=== PATIENT | male | born 1945 | race Caucasian/White ===

== ENCOUNTER 2020-04-15 12:28 | Outpatient (CLI) | payer MEDICARE, SELFPAY ==
--- NOTE | ~2020-04-15 | US_ITS ---
EXAMINATION: US renal BI DATE: 04/15/2020 13:11 INDICATION: Abnormal renal function tests TECHNIQUE: Multiple grayscale and Doppler ultrasound images of the kidneys were obtained. COMPARISON: None. FINDINGS: The right kidney measures 12.3 x 6.3 x 6.9 cm. The left kidney measures 11.2 x 6.2 x 4.7 cm . Cysts of the left kidney measure up to 3 cm. The kidneys demonstrate normal parenchymal echogenicit y. There is no hydronephrosis. The bladder is normal. IMPRESSION: 1. Unremarkable kidneys without hydronephrosis. Reviewed, dictated and finalized at location A. F PHARMACIST
--- NOTE | ~2020-04-15 | US_ITS ---
EXAMINATION: US thyroid EXAM DATE: 04/15/2020 13:11 INDICATION: Z80.8 - Family history of malignant neoplasm of thyroid. TECHNIQUE: Multiple grayscale and Doppler images of the thyroid were obtained (by a technologist who performed the scan) and subsequently reviewed. Individual nodules and recommendations may be reporte d in accordance with TI-RADS system as designated by the 2017 ACR White Paper TI-RADS committee. The re is no prior study for comparison. FINDINGS: The right thyroid lobe measures 4.9 x 2.4 x 2.1 cm, the left measures 5.2 x 2.0 x 2.1 cm. There is mi ldly diffusely heterogeneous thyroid echogenicity. There are 2 left thyroid lobe nodules identified, most concerning in the midpole measuring 2.1 x 1.5 x 1.6 cm, solid (2 points), hypoechoic (2 points), wider than tall, lobulated margin (2 points), with out echogenic foci, category TR4 for this nodule. The other nodule measures up to 1.4 cm. IMPRESSION: Recommend ultrasound-guided biopsy of the largest left thyroid lobe nodule. Reviewed, dictated and finalized at location B. ANT PRINTER OPERATOR
== END 2020-04-15 12:29 | disposition home or self-care (01) ==
LOC: ANHIMG 12:35
PROVIDERS: PCP Internal Medicine; Visit Provider Internal Medicine
DX: R79.89 Other specified abnormal findings of blood chemistry (principal); Z80.8 Family history of malignant neoplasm of other organs or systems
CPT/HCPCS: 76536; 76775

== ENCOUNTER 2020-05-23 01:11 | Outpatient (CLI) | payer MEDICARE, SELFPAY ==
[2020-05-23 18:46] LABS: SARS-CoV-2 RNA PCR Negative
== END 2020-05-23 01:12 | disposition home or self-care (01) ==
LOC: ANHCOVIDDT 01:11
PROVIDERS: Family Provider Internal Medicine; PCP Internal Medicine; Visit Provider Internal Medicine Gastroenterology
DX: Z01.812 Encounter for preprocedural laboratory examination (principal); Z20.822 Contact with and (suspected) exposure to COVID-19
CPT/HCPCS: C9803; U0003; U0005

== ENCOUNTER 2020-05-26 01:45 | Day surgery (SDC) | payer MEDICARE, SELFPAY ==
[2020-05-20 09:47] VITALS: BMI 32.2
[2020-05-26 06:41] VITALS: BP 148/69; PULSE 59; RESP 18; TEMP 36.3; O2SAT 98; BMI 31.2
[2020-05-26] MEDS: LACTATED RINGERS 1,000 ML 150 ML IV CONT (06:54)
[2020-05-26 06:55] LABS: Glucose Point of Care 85 (65-105)
[2020-05-26] MEDS: GENTAMICIN 80MG/SOD CHL 50 ML 80 MG/50 ML BAG 100 MG IVPB (06:55)
[2020-05-26] MEDS: AMPICILLIN 2 GM/NS 100 ML 2 GM/100 ML BAG IVPB (07:19)
--- NOTE | 2020-05-26 07:28 | WPDANESEPPF ---
Anes - Initial Pre Proc Eval Procedure: Operation Date: 05/26/20 08:00 Proposed Procedures p Esophagogastroduodenoscopy & Colonoscopy - Serafin Gonzalez MD Date/Time: 05/26/20 07:28 Surgeon: Serafin Gonzalez MD Pre Op Diagnosis: Anemia Patient Data Age: 75 Gender: M Height: 6 ft 2 in Weight: 110.5 kg Last Vital Signs Temp 97.3 F L 05/26/20 06:41 Pulse 59 L 05/26/20 06:41 Resp 18 05/26/20 06:41 BP 148/69 H 05/26/20 06:41 Pulse Ox 98 05/26/20 06:41 Allergies Allergy/AdvReac Type Severity Reaction Status Date / Time No Known Allergies Allergy Unknown Verified 05/20/20 09:47 Home Medications Medication Instructions Recorded Confirmed Type aspirin 81 mg tablet,delayed 81 mg PO DAILY 04/30/19 05/20/20 History release calcium polycarbophil 625 mg tablet 1,250 mg PO BID 04/30/19 05/20/20 History cholecalciferol (vitamin D3) 1,250 50,000 unit PO WEEKLY #10 cap 04/30/19 05/20/20 Rx mcg (50,000 unit) capsule omega-3 fatty acids 1,000 mg 2,000 mg PO BID cap 05/24/19 05/20/20 History capsule atorvastatin 20 mg tablet 20 mg PO DAILY #90 tablet 09/18/19 05/20/20 Rx carvedilol 3.125 mg tablet 12.5 mg PO BID tablet 09/30/19 05/20/20 History apixaban 5 mg tablet 5 mg PO BID #180 tablet 12/02/19 05/20/20 Rx cyanocobalamin (vitamin B-12) 1,000 mcg IM MONTHLY #1 ml 12/23/19 05/20/20 Rx 1,000 mcg/mL injection solution valsartan 80 mg tablet 160 mg PO DAILY #180 tablet 03/05/20 05/26/20 Rx tamsulosin 0.4 mg capsule 0.4 mg PO DAILY #90 cap 03/16/20 05/20/20 Rx amiodarone 200 mg tablet 200 mg PO DAILY 05/08/20 05/20/20 History metformin 1,000 mg PO BID 05/20/20 05/20/20 History sodium,potassium,mag sulfates See Rx Instructions .ROUTE 05/20/20 Rx [Suprep Bowel Prep Kit] .COMPLEX #1 ml Laboratory Tests 05/26/20 06:52 POC Capillary Glucose 85 mg/dl mg/dl (65-105) Patient hx anesthesia problems: none Family hx anesthesia problems: none [facility] Past Medical History Medical History (Updated 05/08/20 @ 08:56 by Maura Campbell SHINGLER) A-fib Abnormal finding of blood chemistry, unspecified Anemia Benign essential hypertension BMI 31.0-31.9,adult BMI 32.0-32.9,adult BPH (benign prostatic hyperplasia) Bronchitis Cardiac pacemaker in situ CHF (congestive heart failure) Cough DM type 2 (diabetes mellitus, type 2) DREW (dyspnea on exertion) Early satiety Elevated glucose Elevated serum creatinine Encounter for Medicare annual wellness exam Encounter for Medicare annual wellness exam Encounter for routine adult health examination without abnormal findings Encounter for special screening examination for neoplasm of prostate Family history of thyroid cancer Fatigue Follow up Hearing loss Hyperlipidemia Nocturia Non-ischemic cardiomyopathy 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 Orthostatic hypotension AMOR on CPAP Renal insufficiency Rhinorrhea Swelling of right hand Thyroid nodule URI (upper respiratory infection) Vitamin B12 deficiency Vitamin D deficiency Surgical History Surgical History H/O aortic valve replacement Family History Family History Father Family history of diabetes mellitus in first degree relative Family history of coronary artery disease Patient's father is Diabetes mellitus Hypertension Thyroid cancer Sibling Family history of diabetes mellitus in first degree relative Diabetes mellitus Thyroid cancer Other Family history of congestive heart failure Social History Social History Smoking status: Never smoker Second hand tobacco smoke exposure: No Alcohol intake: never Substance use: never Substance use type: does not use Living arrangements: with family Spiritual care concerns: No Anes - Eval Final PreProcedure Day of Procedure 05/26/20 07:28 Patie
--- NOTE | 2020-05-26 08:12 | WPDGICN ---
Assessment and Plan Assessment and plan (1) Anemia: Qualifiers: Anemia type: unspecified type Qualified Code(s): D64.9 - Anemia, unspecified Code(s): D64.9 - Anemia, unspecified Status: Acute Assessment and Plan: Patient with anemia reports occasional rectal bleeding. He is on anticoagulation because of atrial fibrillation. For all these reasons GI endoscopy will be anticipated today to evaluate for safety of continuing blood thinners. Colonoscopy an EGD reports follow separately. (2) A-fib: Qualifiers: Atrial fibrillation type: unspecified persistent Qualified Code(s): I48.19 - Other persistent atrial fibrillation Code(s): I48.91 - Unspecified atrial fibrillation Status: Acute (3) Rectal bleeding: Code(s): K62.5 - Hemorrhage of anus and rectum Status: Acute Assessment and Plan: Rectal bleeding identified will be evaluated at time of endoscopy. Metamucil is suggested daily. Patient is known to have hemorrhoids from previous exam. GI Consult Note Consult date/time: 05/26/20 08:12 HPI: Ryan Almanza is a 75 year old male Presents for evaluation of anemia. Patient recently found to have anemia on routine lab work. Patient reports intermittent bright red blood per rectum particularly lasting 1 week. This occurred 2 weeks ago and has subsequently resolved. Patient states that he typically will strain at stools. He presents today for GI endoscopy to evaluate anemia more thoroughly. Previous colonoscopy by Dr. Joshua Levy in 2018 revealed only internal hemorrhoids. Past medical history is significant for previous aortic valve replacement and pacemaker. He typically is on Eliquis. Patient's family history is noncontributory. He reports no known family history of colon or rectal disease. Review of Systems Review of Systems: All systems reviewed & are unremarkable except as noted in HPI and below [facility] Past Medical History Medical History (Updated 05/26/20 @ 08:16 by Serafin Gonzalez MD) A-fib Abnormal finding of blood chemistry, unspecified Anemia Benign essential hypertension BMI 31.0-31.9,adult BMI 32.0-32.9,adult BPH (benign prostatic hyperplasia) Bronchitis Cardiac pacemaker in situ CHF (congestive heart failure) Cough DM type 2 (diabetes mellitus, type 2) DREW (dyspnea on exertion) Early satiety Elevated glucose Elevated serum creatinine Encounter for Medicare annual wellness exam Encounter for Medicare annual wellness exam Encounter for routine adult health examination without abnormal findings Encounter for special screening examination for neoplasm of prostate Family history of thyroid cancer Fatigue Follow up Hearing loss Hyperlipidemia Nocturia Non-ischemic cardiomyopathy 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 Orthostatic hypotension AMOR on CPAP Renal insufficiency Rhinorrhea Swelling of right hand Thyroid nodule URI (upper respiratory infection) Vitamin B12 deficiency Vitamin D deficiency Surgical History Surgical History H/O aortic valve replacement Family History Family History Father Family history of diabetes mellitus in first degree relative Family history of coronary artery disease Patient's father is Diabetes mellitus Hypertension Thyroid cancer Sibling Family history of diabetes mellitus in first degree relative Diabetes mellitus Thyroid cancer Other Family history of congestive heart failure Social History Social History Smoking status: Never smoker Second hand tobacco smoke exposure: No Alcohol intake: never Substance use: never Substance use type: does not use Living arrangements: with family Spiritual care concerns: No Meds Home Medications and Allergies Home Medications Medication Instru
[2020-05-26 08:54] VITALS: BP 108/69; PULSE 60; RESP 25; O2SAT 97
[2020-05-26 09:04] VITALS: BP 109/71; PULSE 60; RESP 17; O2SAT 97
[2020-05-26 09:14] VITALS: BP 130/72; PULSE 56; RESP 18; O2SAT 96
== END 2020-05-26 09:24 | disposition home or self-care (01) ==
PROVIDERS: Family Provider Internal Medicine; PCP Internal Medicine; Visit Provider Internal Medicine Gastroenterology
PROC: 0DJ08ZZ Inspection of Upper Intestinal Tract, Via Natural or Artificial Opening Endoscopic (ICD-10-PCS; CPT 43235; principal; 2020-05-26 08:00)
DX: D64.9 Anemia, unspecified (principal); K62.5 Hemorrhage of anus and rectum; K64.8 Other hemorrhoids; K22.2 Esophageal obstruction; I48.91 Unspecified atrial fibrillation; I11.0 Hypertensive heart disease with heart failure; I50.9 Heart failure, unspecified; I42.8 Other cardiomyopathies; N40.0 Benign prostatic hyperplasia without lower urinary tract symptoms; E11.9 Type 2 diabetes mellitus without complications; E78.5 Hyperlipidemia, unspecified; G47.33 Obstructive sleep apnea (adult) (pediatric); E55.9 Vitamin D deficiency, unspecified; E53.8 Deficiency of other specified B group vitamins; Z95.0 Presence of cardiac pacemaker; Z95.4 Presence of other heart-valve replacement; Z79.82 Long term (current) use of aspirin; Z79.01 Long term (current) use of anticoagulants; Z79.84 Long term (current) use of oral hypoglycemic drugs; E66.9 Obesity, unspecified; Z68.31 Body mass index [BMI] 31.0-31.9, adult
CPT/HCPCS: 43450; 43235; 45378; 82948; J0290; J1580; J2704; J7120

== ENCOUNTER 2020-05-29 12:54 | Outpatient (CLI) | payer MEDICARE, SELFPAY ==
--- NOTE | ~2020-05-29 | US_ITS ---
EXAMINATION: US FNA w image guidance DATE: 05/29/2020 13:53 INDICATION: Nontoxic single thyroid nodule. TECHNIQUE: The procedure and its benefits, risks, and benefits were discussed with the patient. Risks specifical ly discussed included bleeding. The patient verbalized understanding of the risks and agreed to proce ed. The neck was prepped and draped in the usual sterile manner. 1% lidocaine was used for local ane sthesia. 5 passes were made with a 25G needle into the lesion. Appropriate needle location was docu mented with continuous sonographic guidance. There were no immediate complications. The patient unde rstood to call the ordering physician for results after a week and a half and verbalized that underst anding. FINDINGS: Grayscale ultrasound images demonstrate needles advanced into a 1.7 cm nodule in left thyroid lobe fo r biopsy. IMPRESSION: 1. Ultrasound-guided fine needle aspiration of a left thyroid nodule. Reviewed, dictated and finalized at location A. MILL TECHNICIAN
== END 2020-05-29 12:55 | disposition home or self-care (01) ==
PROVIDERS: PCP Internal Medicine; Visit Provider Otolaryngology
DX: E04.1 Nontoxic single thyroid nodule (principal)
CPT/HCPCS: 10005; 88173; 88305

== ENCOUNTER → 2020-09-04 01:31 | Outpatient (CLI) | payer MEDICARE, SELFPAY ==
[2020-09-04 19:36] LABS: SARS-CoV-2 RNA PCR Negative
== END ==
PROVIDERS: PCP Internal Medicine; Visit Provider Internal Medicine Critical Care Medicine
DX: R68.89 Other general symptoms and signs (principal); Z20.822 Contact with and (suspected) exposure to COVID-19
CPT/HCPCS: C9803; U0003; U0005

== ENCOUNTER 2020-09-07 07:45 | Outpatient (CLI) | payer MEDICARE, SELFPAY ==
--- NOTE | 2020-09-23 14:25 | WPDSLEEPSTUD ---
Sleep Study Date of Study: 09/07/20 Ordering Provider: Artur Henrandez MD Interpreting Physician: Mercedes Hernandez MD Sleep Study Type: CPAP Titration Height: 1.88 m Weight: 113.398 kg Body Mass Index: 32.1 Neck Circumference (inches): 18 [place]: 6 Reason for Sleep Study History of sleep apnea with similar weight 247 lb in 2012 and 2013 Basic sleep study, AHI 58.7, lowest sat 83%, obstructive, mixed and central apneas 07/03/2013 CPAP; inadequate CPAP titration, complex sleep apnea, recommended repeat titration 07/30/2013 BiPAP titration, ASV with final pressure EPAP 8 cm, min PS 3 cm, max PS 15 cm Sleep History Ryan Almanza is a 75-year-old man who was diagnosed with complex sleep apnea in 2012, and was titrated on ASV July 2013. See above results. There is no new sleep questionnaire completed. His office visit on August 26, 2020 shows that he currently uses CPAP and is complaint with it. I see no compliance data in the system. He has non-nonischemic cardiomyopathy, atrial fibrillation and orthostatic hypotension. The last sleep study in our system was 2013 when he was titrated on ASV. He has systolic heart failure and a history of aortic valve replacement 07/04/2007 with a bioprosthetic valve. He developed worsening LV function and decreased EF, and on 01/21/2019 had a Bi V ICD placed. The most recent echo results were from 09/02/2020 echo at [facility] with severely enlarged left atrium, ejection fraction 39% with left ventricular hypertrophy. With an EF below 45%, he is not a candidate for ASV any longer. [facility] Past Medical History Medical History (Updated 09/23/20 @ 16:02 by Mercedes Hernandez MD) A-fib Abnormal finding of blood chemistry, unspecified Anemia Benign essential hypertension BMI 31.0-31.9,adult BMI 32.0-32.9,adult BMI 33.0-33.9,adult BPH (benign prostatic hyperplasia) Bronchitis Cardiac pacemaker in situ CHF (congestive heart failure) Cough DJD (degenerative joint disease), multiple sites DM type 2 (diabetes mellitus, type 2) DREW (dyspnea on exertion) Early satiety Edema Elevated glucose Elevated serum creatinine Encounter for Medicare annual wellness exam Encounter for Medicare annual wellness exam Encounter for routine adult health examination without abnormal findings Encounter for special screening examination for neoplasm of prostate Family history of thyroid cancer Fatigue Follow up Hearing loss Hyperlipidemia Nocturia Non-ischemic cardiomyopathy 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 Orthostatic hypotension AMOR on CPAP Renal insufficiency Rhinorrhea SOB (shortness of breath) Swelling of right hand Systolic heart failure Thyroid nodule URI (upper respiratory infection) Vitamin B12 deficiency Vitamin D deficiency Surgical History Surgical History H/O aortic valve replacement Family History Family History Father Thyroid cancer Diabetes mellitus Family history of diabetes mellitus in first degree relative Patient's father is Family history of coronary artery disease Hypertension Family history of congestive heart failure Sibling Thyroid cancer Diabetes mellitus Family history of diabetes mellitus in first degree relative Social History Social History Smoking status: Never smoker Second hand tobacco smoke exposure: No Alcohol intake: never Substance use: never Substance use type: does not use Spiritual care concerns: No Medications Home Medications Medication Instructions Recorded Confirmed Type aspirin 81 mg tablet,delayed 81 mg PO DAILY 04/30/19 09/08/20 History release calcium polycarbophil 625 mg tablet 1,250 mg PO BID 04/30/19 09/08/20 History omega-3 fatty acids 1,000 mg 2,000 mg PO BID cap 05/24/19 09/08/20 History capsule tamsulosin 0.4 mg capsule 0.4 mg PO DONNA
[2020-09-23 15:37] VITALS: BMI 32.1
== END 2020-09-07 07:46 | disposition home or self-care (01) ==
LOC: ANHCSM 07:49
PROVIDERS: PCP Internal Medicine; Visit Provider Internal Medicine
DX: G47.33 Obstructive sleep apnea (adult) (pediatric) (principal); G25.81 Restless legs syndrome; Z99.89 Dependence on other enabling machines and devices
CPT/HCPCS: 95811

== ENCOUNTER 2020-11-09 07:15 | Outpatient (RCR) | payer MEDICARE, SELFPAY ==
[2020-08-18 08:48] VITALS: BP 138/70; PULSE 79; RESP 16; TEMP 36.6; O2SAT 97
[2020-08-18 09:23] VITALS: PULSE 80
== END 2020-11-09 15:30 | disposition home or self-care (01) ==
LOC: ANHCPREHAB 07:15
PROVIDERS: PCP Internal Medicine; Visit Provider Internal Medicine Cardiovascular Disease
DX: Z95.2 Presence of prosthetic heart valve (principal)
CPT/HCPCS: 93798

== ENCOUNTER 2020-12-03 11:39 | Outpatient (CLI) | payer MEDICARE, SELFPAY ==
--- NOTE | ~2020-12-03 | XR_ITS ---
EXAMINATION: XR chest 2V DATE: 12/03/2020 11:57 INDICATION: Cough. TECHNIQUE: Frontal and lateral views of the chest were obtained. COMPARISON: Chest 2 views 12/22/2017, PET/CT 11/22/2018 FINDINGS: There is no pneumonia, pleural effusion, or pneumothorax. Cardiomegaly is noted. There are changes of heart valve replacement. There is a left chest pacer with leads in right atrium, right sky tricle, and coronary sinus. IMPRESSION: 1. Cardiomegaly. Reviewed, dictated and finalized at location A. IMPRESSION: 1. Cardiomegaly.
== END 2020-12-03 11:40 | disposition home or self-care (01) ==
PROVIDERS: PCP Internal Medicine; Visit Provider Internal Medicine
DX: R05 Cough (principal); I51.7 Cardiomegaly
CPT/HCPCS: 71046

== ENCOUNTER 2020-12-17 14:55 | Outpatient (CLI) | payer MEDICARE, SELFPAY ==
--- NOTE | ~2020-12-17 | XR_ITS ---
XR knee RT min 4V DATE: 12/17/2020 15:49 INDICATION: Right knee pain for 2 days. No known injury. TECHNIQUE: [place], standing AP, PA and lateral views COMPARISON: None FINDINGS: There is mild suprapatellar knee joint effusion. No fracture or dislocation, radiopaque intra-articular loose body or chondrocalcinosis is evident. Th ere is mild to moderate loss of height at the medial compartment. No periosteal reaction or bone dest ruction. IMPRESSION: Mild knee joint effusion Mild osteoarthritis Reviewed, dictated and finalized at location A.
[2020-12-17 16:44] LABS: Erythrocyte Sedimentation Rate 14 mm/hr (0-20)
[2020-12-17 17:12] LABS: CRP 1.9 mg/dL (<1.0); Uric Acid 7.3 mg/dL (3.5-8.5)
== END 2020-12-17 14:56 | disposition home or self-care (01) ==
PROVIDERS: PCP Internal Medicine; Visit Provider Internal Medicine
DX: M25.461 Effusion, right knee (principal); M17.11 Unilateral primary osteoarthritis, right knee
CPT/HCPCS: 36415; 73564; 84550; 85652; 86140

== ENCOUNTER 2021-09-28 07:58 | Outpatient (RCR) | payer MEDICARE, SELFPAY ==
[2021-09-28 08:06] VITALS: BMI 32.7
[2021-09-28 08:12] VITALS: BMI 32.7
== END 2021-10-15 11:56 | disposition home or self-care (01) ==
LOC: ANHDMC 07:58
PROVIDERS: PCP Internal Medicine; Visit Provider Internal Medicine
DX: E11.65 Type 2 diabetes mellitus with hyperglycemia (principal); Z71.3 Dietary counseling and surveillance
CPT/HCPCS: 97802

== ENCOUNTER 2023-04-26 10:01 | Outpatient (CLI) | payer MEDICARE, SELFPAY ==
--- NOTE | ~2023-04-26 | XR_ITS ---
Clinical Indication: Chest pain PA and lateral views of the chest: Comparison: 12/11/2020 Findings: The lungs are clear, without evidence of focal consolidation or pleural effusion. Stable pr esumed bilateral nipple shadows. Cardiomediastinal silhouette is stable, status post aortic valve rep lacement, with pacemaker device. Bones and soft tissues are unremarkable. Impression: No acute abnormality. Pacemaker device. Reviewed, dictated and finalized at location M. ETING COMMUNICATIONS ASSISTANT Impression: No acute abnormality. Pacemaker device.
== END 2023-04-26 10:02 | disposition home or self-care (01) ==
PROVIDERS: PCP Internal Medicine; Visit Provider Internal Medicine
DX: R07.9 Chest pain, unspecified (principal); Z95.0 Presence of cardiac pacemaker
CPT/HCPCS: 71046

== ENCOUNTER 2023-05-11 08:35 | Outpatient (CLI) | payer MEDICARE, SELFPAY ==
--- NOTE | ~2023-05-11 | XR_ITS ---
EXAMINATION: XR UGIAC w small bowel DATE: 05/11/2023 13:55 INDICATION: Unspecified abdominal pain. Irregular bowel movements. TECHNIQUE: The patient drank thick barium, gas-producing crystals, and thin barium. Conventional supi ne abdomen radiographs and fluoroscopic spot radiographs of the esophagus, stomach, and proximal smal l bowel were obtained. Additional overhead radiographs were obtained during the transit through the s mall bowel. Spot fluoroscopic images of the small bowel were obtained upon contrast reaching the cec um. Fluoroscopy exposure time was 3.9 minutes. Total DAP was 341.837 Gycm^2. A total of 806 fluorosco pic images and 12 overhead radiographs were recorded. COMPARISON: CT abdomen and pelvis dated 05/01/2013 and PET/CT dated 11/22/2018 FINDINGS: The cricopharyngeus muscle appears mildly prominent. The esophagus is otherwise normal without mass o r stricture. Esophageal motility is normal. Small sliding-type hiatal hernia with gastroesophageal ju nction approximately 5 cm above the level of the diaphragm. There was no gastroesophageal reflux with provocative maneuvers. There is approximately 3 cm duodenal diverticulum extending medially from the second portion of the duodenum. The stomach and proximal small bowel are otherwise normal. Transit time from the stomach to proximal colon was approximately 2 hours and 30 minutes. There is no rmal caliber and mucosal fold pattern throughout the small bowel. Terminal ileum is normal. No teth ering or abnormal mass effect observed upon the small bowel with real-time fluoroscopy. Median sternotomy wires and mediastinal surgical clips are seen, likely from prior coronary artery by pass grafting. Dual lead pacemaker/AICD seen with leads projecting over the expected locations of the right atrium and right ventricular outflow tract. Cholecystectomy clips in the right upper quadrant. Couple additional surgical clips in the left abdomen and pelvis. IMPRESSION: 1. Small sliding-type hiatal hernia without evident reflux with provocative maneuvers. 2. Normal small bowel follow-through. Reviewed, dictated and finalized at location A. ING AND BONING SUPERVISOR IMPRESSION: 1. Small sliding-type hiatal hernia without evident reflux with provocative man euvers. 2. Normal small bowel follow-through.
--- NOTE | ~2023-05-11 | US_ITS ---
EXAMINATION: US abdomen complete DATE: 05/11/2023 09:31 INDICATION: Unspecified abdominal pain. TECHNIQUE: Multiple grayscale and Doppler ultrasound images of the abdomen were obtained. COMPARISON: PET/CT 11/22/2018 FINDINGS: Inferior vena cava is normal. Abdominal aorta is normal in caliber. The visualized portions of the head and body of the pancreas are normal. The liver is normal without focal lesion. There is normal flow in main portal vein. The gallbladder is absent. The common duct is normal and measures 4 mm. The spleen is normal size. The kidneys are normal in size. There is a 3.5 cm cyst in left kidney. IMPRESSION: 1. No etiology for abdominal pain. Reviewed, dictated and finalized at location E. COUNTER AND WRAPPER
== END 2023-05-11 08:36 | disposition home or self-care (01) ==
LOC: ANHIMG 08:40
PROVIDERS: PCP Internal Medicine; Visit Provider Internal Medicine
DX: R10.9 Unspecified abdominal pain (principal); K44.9 Diaphragmatic hernia without obstruction or gangrene
CPT/HCPCS: 74246; 74248; 76700

== ENCOUNTER 2023-07-20 09:18 | Outpatient (CLI) | payer MEDICARE, SELFPAY | END 2023-07-20 09:19 | disposition home or self-care (01) | LOC: ANHLAB 09:21 | PROVIDERS: PCP Internal Medicine; Visit Provider Internal Medicine | DX: R19.7 Diarrhea, unspecified (principal) | CPT/HCPCS: 87045; 87177; 87209; 87427; 87449; 89055 ==

== ENCOUNTER 2023-11-09 07:52 | Outpatient (CLI) | payer MEDICARE, SELFPAY | END 2023-11-09 07:53 | disposition home or self-care (01) | LOC: ANHAUDASC 07:53 | PROVIDERS: PCP Internal Medicine; Visit Provider Internal Medicine | DX: H90.3 Sensorineural hearing loss, bilateral (principal) | CPT/HCPCS: 92557; 92567 ==

== ENCOUNTER 2024-06-17 12:44 | Outpatient (CLI) | payer MEDICARE, SELFPAY ==
--- NOTE | ~2024-06-17 | US_ITS ---
EXAM: ABDOMEN ULTRASOUND HISTORY: R14.0 - Abdominal distension (gaseous) COMPARISON: 05/11/2023 FINDINGS: LIVER: The liver is unremarkable in echogenicity and size measuring 16cm in longitudinal dimension. The portal vein is patent demonstrating hepatopedal flow. GALLBLADDER: Surgically absent. BILE DUCTS: Common bile duct measures 4mm. PANCREAS: Limited evaluation of the pancreas secondary to overlying bowel gas SPLEEN: The spleen is unremarkable in echogenicity and increased in size measuring 15 cm in longitudi nal dimension (increased from previous examination). RIGHT KIDNEY: 11.8 cm. In length. No hydronephrosis or bulky renal calculi. LEFT KIDNEY: 11.4cm in length. No hydronephrosis or renal calculi. Within the upper pole of the left kidney is a well-circumscribed anechoic structure measuring 4.5 x 1 .5 x 4.7 cm, consistent with a simple cyst for which no further follow-up is needed. VASCULATURE : The abdominal aorta is nonaneurysmal. The IVC is patent. IMPRESSION: Evaluation of the pancreas is limited by overlying bowel gas. Splenomegaly. Simple cyst within the upper pole of the left kidney. Reviewed, dictated and finalized at location A. ITUTIONAL AIDE
--- NOTE | ~2024-06-17 | XR_ITS ---
EXAMINATION: XR UGI w small bowel DATE: 06/17/2024 16:34 INDICATION: Abdominal distention. TECHNIQUE: The patient drank thick barium, gas-producing crystals, and thin barium. Fluoroscopy of th e esophagus, stomach, and small bowel was performed. Fluoroscopy exposure time was 1.2 minutes. Radio graphs of the abdomen were obtained. The total number of images was 481. COMPARISON: PET/CT 11/22/2018 FINDINGS: UPPER GASTROINTESTINAL SERIES: There is no mass or stricture of the esophagus. Esophageal motility is normal. There is no hiatal her aniyah. There was no gastroesophageal reflux with provocative maneuvers. The stomach shows a normal fold ing pattern. Median sternotomy wires and pacer wires are noted. SMALL BOWEL SERIES: The small bowel shows a normal folding pattern. Specifically, the terminal ileum is normal. Transit t danny to the colon was 1 hour 45 minutes. IMPRESSION: 1. Normal upper gastrointestinal series. 2. Normal small bowel series. Reviewed, dictated and finalized at location A. DESIGNER
--- OUTSIDE RECORDS SUMMARY | 2024-06-17 14:29 | XMS_ITS | Referral Summary ---
Author Organization [facility] D Address [address] [place] [address] Care Team Providers Care Nurse Technician Name Role Phone Artur Hernandez MD Primary Care Provider [phone] Giuliana Gómez MD Unavailable [phone] Kenny Chavez MD Unavailable [phone] Encounters Date Type Department Care Team Description 03/25/2024 8:00 AM CLINICAL PRODUCT MANAGER Ancillary Procedure [facility] [address] [place] [id number] ICD (implantable cardioverter-defibr illator), biventricular, in situ (Primary Dx); NICM (nonischemic cardiomyopathy) (CMS/HCC) (FORMERLY [facility]) 03/19/2024 Documentation [facility] [address] [place] [phone] Kirstie Doherty NP from Last 3 Months Allergies Active Allergy Reactions Criticality Noted Date Comments Spironolactone Other (See comments) Low 07/11/2020 did not have allergic reaction but threw lab work off. pt cant tolerate it. Medications polycarbophil (FIBERCON) 625 mg tablet Take 1 tablet (625 mg total) by mouth 2 (two) times a day Active aspirin 81 mg enteric coated tablet Take 1 tablet (81 mg total) by mouth nightly Active atorvastatin (LIPITOR) 20 mg tablet Take 1 tablet (20 mg total) by mouth nightly Active apixaban (ELIQUIS) 5 mg tablet Take 1 tablet (5 mg total) by mouth 2 (two) times a day Active metFORMIN (FORTAMET) 1,000 mg 24 hr tablet Take 1 tablet (1,000 mg total) by mouth 2 (two) times a day with meals Active cyanocobalamin, vitamin B-12, 1,000 mcg/mL kit Inject as directed every 30 (thirty) days Active tamsulosin (FLOMAX) 0.4 mg extended release capsule Take 1 capsule (0.4 mg total) by mouth every evening 0 Active folic acid 0.8 mg capsule daily 1 Active cholecalciferol (VITAMIN D-3) 1,000 unit capsule Take 1 capsule (1,000 Units total) by mouth daily Active potassium chloride ER (KLOR-CON) 10 mEq CR tablet Take 1 tablet/capsul e (10 mEq total) by mouth Twice weekly 1 Active empagliflozin (JARDIANCE) 25 mg tabletIndications: heart failure with reduced ejection fraction,type 2 diabetes mellitus Take 1 tablet (25 mg total) by mouth daily Active furosemide (LASIX) 20 mg tablet Take 1 tablet (20 mg total) by mouth 2 (two) times a week 2 Active carvediloL (COREG) 25 mg tabletIndications: Automatic implantable cardiac defibrillator in situ,Chronic systolic congestive heart failure (CMS/HCC) (HCC) Take 1 tablet (25 mg total) by mouth 2 (two) times a day 60 tablet 11 4 09/19/19 25 Active melatonin 5 mg tablet Take 1 tablet (5 mg total) by mouth daily Active carvediloL (COREG) 3.125 mg tablet Take 1 tablet (3.125mg) by mouth with 25 mg tablet twice daily (total 28.125mg) 180 tablet 3 4 Active sacubitriL-valsart an (ENTRESTO) 49-51 mg tabletIndications: chronic heart failure Take 1 tablet by mouth 2 (two) times a day 60 tablet 11 4 02/14/20 25 Active Active Problems Problem Noted Date Diagnosed Date S/P ablation of atrial fibrillation 12/22/2023 Anticoagulation management encounter 06/21/2023 Assessment & Plan (06/21/2023 2:56 PM CLINICAL PRODUCT MANAGER): -remains compliant on Eliquis -denies any issues with bruising or bleeding -recommend continued therapy for thromboprophylaxis Aftercare following surgery 08/11/2020 Aortic valve disease 08/06/2020 Assessment & Plan (03/11/2021 11:09 AM CLINICAL PRODUCT MANAGER): Bioprosthetic aortic valve is functioning normally. Assessment & Plan (11/05/2020 10:21 AM CDT): He is status post two aortic valve replacements, 2007 and 2020. There is no AI murmur heard today. He feels that he is not recuperating as well since his 2nd operation as he did with his 1st, which is not very surprising to me as he is 13 years older now and has had significant heart issues between the two operations including a left bundle branch block related cardiomyopathy and atrial fibrillation. Assessment & Plan (08/06/2020 8:10 AM CDT): Remote aortic valve replacement which recently failed, followed by redo AVR on 07/06/2020 from which s cardiac rehab he is recuperating well. I do recommend cardiac rehab. Nonrheumatic aortic valve insufficiency 07/03/19 Overview (07/02/2020): Added automatically from request for surgery [id number] Aortic valve insufficiency 06/09/2020 Chronic systolic congestive heart failure (CMS/H CC) 07/04/2019 Assessment & Plan (02/07/2024 11:27 AM CDT): Chronic, stable. S/p RAILROAD CAR REPAIRMAN-D system implantation. Excellent device function by interrogation today. BiV pacing percentage 87% without a clear explanation. Reported PVC% is 1%. No PVCs in office today. --Continue remote device monitoring Assessment & Plan (03/11/2021 11:09 AM CLINICAL PRODUCT MANAGER): Congestive heart failure appears to be well compensated at this time. Recent proBNP was only mildly elevated, and lungs are clear to exam. Oxygen saturation is 96%. Weight is down 4 lb in the last month. Assessment & Plan (11/05/2020 10:22 AM CDT): Congestive heart failure is compensated by exam. He does have mild ankle edema but is lungs sound clear and he does not describe orthopnea or PND. He is on a very low-dose of furosemide which appears to be effective. Assessment & Plan (11/25/2019 10:10 AM CDT): No evidence of congestive heart failure at this time. He is on no diuretic therapy. ICD (implantable cardioverte r-defibrillator), biventricular, in situ 01/21/2019 Overview (01/21/2019): [employer] Quadra Assura BI-V ICD implanted on 01/21/19 for NICM/CHF/LBBB. Loyd Whittington Assessment & Plan (03/10/2024 8:28 PM CLINICAL PRODUCT MANAGER): Followed by the Device Clinic. Assessment & Plan (06/21/2023 3:01 PM CLINICAL PRODUCT MANAGER): -status post bi V ICD placement (2018) -Device interrogation performed today showed 77% RA pacing and 85% RV and LV pacing. -Two years to RISHABH. -Atrial arrhythmia burden is less than 1%. -Had an episode of atrial fibrillation that lasted 5 days and 14 minutes. Rates in the 90s. Patient denies feeling his atrial fibrillation. -The patient's device was interrogated today and found to be functioning appropriately. No significant programming changes were made at this time. The patient will continue to be followed through the [facility] device clinic remotely and with in office device interrogations as needed. Assessment & Plan (06/01/2020 10:41 AM CLINICAL PRODUCT MANAGER): Followed by Dr. Harp, with normal function when last assessed. Assessment & Plan (05/03/2019 5:32 PM CLINICAL PRODUCT MANAGER): Paced QRS complex is wide. This may not result in improvement in his cardiomyopathy. Will communicate with Dr. Harp. Assessment & Plan (04/02/2019 10:40 AM CLINICAL PRODUCT MANAGER): To be interrogated today. Dilated cardiomyopathy (CMS/HCC) 12/19/2018 Assessment & Plan (03/10/2024 8:22 PM CLINICAL PRODUCT MANAGER): Mr. Almanza endorses NYHA Class II heart failure symptoms. He is euvolemic on exam and tolerating GDMT including Entresto, Jardiancem, and Carvedilol. I have made no changes to his regimen today and have asked him to follow up in 3 months. Assessment & Plan (09/27/2023 1:14 PM CDT): S/p RAILROAD CAR REPAIRMAN-D system implantation. Inadequate RAILROAD CAR REPAIRMAN delivery due to rapid AF. --AF ablation as above --Repeat TTE to reassess LV function Assessment & Plan (03/11/2021 11:11 AM CLINICAL PRODUCT MANAGER): Echo shows marked worsening compared with that done six months ago, despite compliance with medications and CPAP, and despite normal function of his bioprosthetic aortic valve. QRS complex was quite wide on his echo rhythm strip. I discussed this with Kirstie Doherty NP and the device nurse. He has an appointment today in the arrhythmia Center. They will try to change the timing on his biventricular device to shorten QRS, thereby providing more effective biventricular pacing. Will confer with Dr. Chavez, and defer to him regarding management, although my expectation would be that he will continue to up titrate carvedilol (has been on current dose for only 1 week), likely switch from losartan to Entresto, and likely add Farxiga. Will plan to repeat echo in conjunction with an office visit in three months. Assessment & Plan (11/05/2020 10:20 AM CDT): Ejection fraction deteriorated with his prosthetic valve aortic insufficiency. Most recent echo showed an EF of 39% in August 2020. Repeat echo in February. Assessment & Plan (08/06/2020 8:12 AM CDT): Cardiomyopathy had resolved, then recurred in the setting of his aortic insufficiency. Will increase carvedilol from 3.125 mg b.i.d. to 6.25 mg b.i.d. I fully expect his ejection fraction to normalize again. Echo Doppler in one month. Assessment & Plan (06/01/2020 10:39 AM CLINICAL PRODUCT MANAGER): Ejection fraction has normalized with medications, maintenance of sinus rhythm, and biventricular pacing. Assessment & Plan (11/25/2019 10:08 AM CDT): This appears to have resolved. Heart size was normal on his echo from 08/23/2019. Assessment & Plan (08/23/2019 11:43 AM CDT): Today's echocardiogram shows that his left ventricle is normal in size and contractility. I believe this is attributable to biventricular pacing (although EF was still quite low six weeks after initiation of Bi V pacing) and to resolution of atrial fibrillation. I would recommend continuation of his current regimen, though perhaps with mild adjustment over time as outlined below. Assessment & Plan (06/21/2019 10:31 AM CLINICAL PRODUCT MANAGER): He is minimally symptomatic, which has been confounding to him. Will increase carvedilol to 25 mg b.i.d.. If his blood pressure remains high on this dosage, valsartan should be increased to 320 mg daily. Will plan to obtain an echocardiogram in two months, after he has been on maximal carvedilol dosage and is hopefully back in sinus rhythm. In the meantime, he has an appointment scheduled with Dr. Chavez. Assessment & Plan (05/24/2019 10:13 AM CLINICAL PRODUCT MANAGER): Tolerating carvedilol. Increased dosage to 12.5 mg b.i.d. and return in three weeks for an increase to 25 mg b.i.d.. Will plan to reassess EF once he has been on this dosage for 2-3 months. He remains minimally symptomatic. Assessment & Plan (05/03/2019 5:27 PM CLINICAL PRODUCT MANAGER): Reviewed again that it is great that he feels so good, but nevertheless he does have a serious heart problem. Increase carvedilol to 6.25 mg b.i.d. and see me in two weeks for up titration to 12.5 mg b.i.d.. I'm reluctant to transition him to Entresto with his blood pressure running somewhat high despite 60 mg of lisinopril, but may consider this if his blood pressure improves with up titration of carvedilol. Will need to make sure that he can afford this, and he would need to come off lisinopril for 36 hours prior to initiating it. Strictly speaking, since he does not have chronic heart failure NYHA class 2-4, he may not meet criteria for Entresto. He was advised to limit alcohol consumption to no more than one alcoholic beverage in a 24 hour period (again, this is very frustrating to him since he is feeling fine and has a hard time believing there is anything wrong). Assessment & Plan (04/02/2019 10:40 AM CLINICAL PRODUCT MANAGER): Still with severe dilated cardiomyopathy, ejection fraction perhaps slightly improved compared with his most recent DANNY. Now that he is being paced, will add carvedilol 3.125 mg b.i.d. and see him back in a month for gradual up titration. 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 Assessment & Plan (01/04/2019 3:40 PM CDT): Cause of his dilated cardiomyopathy is still uncertain. I suspect it may be related to his left bundle branch block, but it is also possible that it has developed in the setting atrial fibrillation. He tolerates it remarkably well. Assessment & Plan (12/19/2018 4:33 PM CDT): Ejection fraction has dropped since March of 2018 from 59% to 36% by echo, coincident with enlargement of the left ventricle from 5.3 cm to 6.4 cm. In the same interval, he has developed atrial fibrillation. He has a left bundle branch block pattern which in retrospect may have been present since 2013, and which may contribute to left ventricular dysfunction, although left ventricular function was normal in March 2018. He has recently developed exertional dyspnea, but by exam does not seem to be in congestive heart failure. I have recommended a DANNY guided cardioversion in the hopes of restoring sinus rhythm, in the hopes that this will improve his ejection fraction. If his ejection fraction does not improve significantly with christian of sinus rhythm, would consider cardiac resynchronization therapy. LBBB (left bundle branch block) 12/19/2018 Assessment & Plan (08/06/2020 8:14 AM CDT): Status post Bi V ICD. Assessment & Plan (11/25/2019 10:09 AM CDT): This likely contributed to his cardiomyopathy and he is now biventricular paced. Assessment & Plan (06/21/2019 10:35 AM CLINICAL PRODUCT MANAGER): Received Bi V ICD on 01/11/2019. Echocardiogram three months later showed an EF of 31%, on improved. Assessment & Plan (05/03/2019 5:32 PM CLINICAL PRODUCT MANAGER): This may have contributed to his cardiomyopathy. Unfortunately, he is maintaining a wide complex paced rhythm despite biventricular pacing. Assessment & Plan (04/02/2019 10:39 AM CLINICAL PRODUCT MANAGER): Status post biventricular device. Assessment & Plan (01/04/2019 3:42 PM CDT): This was present on his Holter monitor in May 2017. It may be the cause or or a contributor to his cardiomyopathy. His EF was 59% on 03/27/2018. Assessment & Plan (12/19/2018 4:28 PM CDT): On review of EKG tracings done with echocardiograms, this appears to have developed sometime between 2011 and 2013. It may be contributing to his LV dysfunction. However, LV dysfunction was not demonstrated on an echocardiogram in March 2018. Paroxysmal atrial fibrillation (CMS/HCC) 019 Assessment & Plan (03/10/2024 8:28 PM CLINICAL PRODUCT MANAGER): Remains on Eliquis. Beta radha dose increased by EP for increased AF burden. Assessment & Plan (02/07/2024 11:27 AM CDT): Chronic, stable. Doing well post-AF ablation without recurrence. --Continue apixaban 5 mg BID --Continue carvedilol 25 mg BID Assessment & Plan (09/27/2023 1:13 PM CDT): Probably symptomatic, with fatigue/ effort intolerance. Occurring in context of NICM and LBBB s/p RAILROAD CAR REPAIRMAN-D system implantation. AF now interfering with adequate delivery of RAILROAD CAR REPAIRMAN despite maximum dose BB therapy. Significant risk of LV function deterioration and worsening HF syndrome I counseled the patient regarding management options for symptomatic atrial fibrillation. These include further rate control/expectant therapy, antiarrhythmic drug therapy +/- electrical cardioversion or catheter ablation. We also discussed AV node ablation as a definitive rate control strategy. After review of the relative merits of each approach, together we agreed that ablation was the next best step. I reviewed the procedural steps, risks/benefits, recovery and expected outcomes for AF ablation. He is at elevated risk for procedural complications due to his advanced age, cardiomyopathy and presence of RAILROAD CAR REPAIRMAN system. I reviewed the concept that patients with more persistent AF are at higher risk for recurrence, and that a second procedure is often necessary to achieve an optimal outcome. I emphasized the importance of uninterrupted anticoagulation for at least 3 months following ablation, regardless of baseline thromboembolic risk. After answering all questions, the patient elected to proceed with ablation. --Atrial fibrillation ablation w/anesthesia --DANNY on table prior to procedure --[employer] device eligibility services representative to be available for programming periprocedurally --Continue apixaban 5 mg BID. Hold starting the evening prior to procedure. --Continue carvedilol 25 mg BID Pt will follow-up 1 month post-ablation in the AF clinic with a nurse practitioner. Follow-up with me 3 months post-ablation. Assessment & Plan (06/21/2023 3:42 PM CLINICAL PRODUCT MANAGER): -atrial fibrillation noted upon device interrogation today, with the longest episode lasting 5 days and 14 minutes, patient denies any symptoms with that arrhythmia (burden less than 1%) -remains compliant on Coreg and Eliquis -patient had not increase his Coreg to 12.5 mg b.i.d., he will do so today -EKG today demonstrates biventricular pacing (60) -follow-up in 6 months for a 12 lead EKG in clinic visits -remote transmission in 4 weeks to re-evaluate Assessment & Plan (03/11/2021 11:11 AM CLINICAL PRODUCT MANAGER): By device interrogation he is maintaining sinus rhythm on low-dose amiodarone. He is also on Eliquis 5 mg b.i.d.. Assessment & Plan (11/05/2020 10:22 AM CDT): Follows with EP. He remains on amiodarone and Eliquis. Assessment & Plan (08/06/2020 8:12 AM CDT): In sinus rhythm on amiodarone. He follows with Dr. Harp for his heart rhythm. Assessment & Plan (06/01/2020 10:41 AM CLINICAL PRODUCT MANAGER): Most recent device interrogation showed no atrial fibrillation on amiodarone. Will defer to Dr. Harp regarding duration of amiodarone therapy. Assessment & Plan (11/25/2019 10:09 AM CDT): Maintaining sinus rhythm on amiodarone. He is anticoagulated. Assessment & Plan (08/23/2019 11:44 AM CDT): Status post cardioversion on 07/01/2019. He remains on amiodarone 400 mg daily. He will follow-up with Dr. Harp. Continue anticoagulation. Assessment & Plan (06/21/2019 10:35 AM CLINICAL PRODUCT MANAGER): Device remote through 05/21/2019 showed that he was still in atrial fibrillation. He is scheduled for cardioversion with Dr. Harp in early June. Will message device staff to check and make sure that he is still in atrial fibrillation. Assessment & Plan (05/24/2019 10:14 AM CLINICAL PRODUCT MANAGER): On amiodarone. Seeing EP. Cardioversion planned for June. Assessment & Plan (05/03/2019 5:32 PM CLINICAL PRODUCT MANAGER): Anticoagulated. Plan for cardioversion in two months. Assessment & Plan (04/02/2019 10:39 AM CLINICAL PRODUCT MANAGER): He is on amiodarone and Eliquis. He has a device check today and appointment with Dr. Hrap. Assessment & Plan (01/04/2019 3:39 PM CDT): Atrial fibrillation has recurred since cardioversion. This early recurrence leads me to believe he needs anti rhythmic therapy, which is not safe given his significant sinus node dysfunction. Continue Eliquis. Will refer to Dr. Harp for consideration at least biventricular pacing, and perhaps biventricular ICD. Once his heart rate can be controlled, anti rhythmic therapy can be initiated. Continue Eliquis. Assessment & Plan (12/19/2018 4:34 PM CDT): Newly discovered. Although he had not had a recent EKG, I did look at the EKG tracing with his echo of 03/27/2018, and he was definitely in sinus rhythm then. He does not experience palpitations, and the chronicity of his atrial fibrillation is unknown except that it has developed sometime since March 2018. His normal heart rate in atrial fibrillation is consistent with his history of sinus node dysfunction. Since his atrial fibrillation is associated with a decline in ejection fraction, I have recommended early cardioversion which requires DANNY guidance. He is to continue Eliquis. I explained to him and his that with christian of sinus rhythm it is possible that his heart rate will be slow, and a pacemaker could be necessary. I did discuss his case informally with Dr. Harp, who agrees with cardioversion at this point given his LV dysfunction. H/O aortic valve replacement with tissue graft 1 05/29/2016 Assessment & Plan (03/10/2024 8:29 PM CLINICAL PRODUCT MANAGER): Normal function on echo earlier this year. Assessment & Plan (06/01/2020 10:43 AM CLINICAL PRODUCT MANAGER): He has an aortic insufficiency murmur today which I have not previously heard. It was not described in my note from November [address] Chavez's note from January 2020. Will obtain echo Doppler. If his valve is deteriorating this may explain why he is more short of breath now than he was a year ago. Assessment & Plan (11/25/2019 10:09 AM CDT): Aortic valve is functioning normally. Assessment & Plan (08/23/2019 11:46 AM CDT): Normal function. Assessment & Plan (06/21/2019 10:36 AM CLINICAL PRODUCT MANAGER): Bioprosthetic aortic valve is functioning normally. Assessment & Plan (05/03/2019 5:29 PM CLINICAL PRODUCT MANAGER): Functioning normally. Assessment & Plan (04/02/2019 10:39 AM CLINICAL PRODUCT MANAGER): Aortic valve is functioning normally. Assessment & Plan (01/04/2019 3:42 PM CDT): Aortic valve is functioning normally. Assessment & Plan (12/19/2018 4:29 PM CDT): Aortic valve is functioning normally. Assessment & Plan (03/27/2018 11:11 AM CLINICAL PRODUCT MANAGER): Mild transvalvular gradient, without significant change since 2016. We discussed the potential for valve in valve TAVR when/if this valve fails. Assessment & Plan (03/28/2017 11:23 AM CLINICAL PRODUCT MANAGER): No symptoms of aortic stenosis, and valve was functioning well on last year's echo. His exam today does not suggest that this is changed significantly. Will obtain an echo in one year, two years from his last one. H/O aortic root repair 03/28/2017 Assessment & Plan (03/28/2017 11:22 AM CLINICAL PRODUCT MANAGER): He has not had a recent chest CT. Will order. His last one was done without contrast which made measurements difficult. Essential hypertension 03/28/2017 Assessment & Plan (03/11/2021 11:11 AM CLINICAL PRODUCT MANAGER): Blood pressure is controlled on current regimen. Assessment & Plan (11/05/2020 10:23 AM CDT): Blood pressure is adequately controlled on current regimen. No change was made. Assessment & Plan (08/06/2020 8:12 AM CDT): Blood pressure is adequately controlled on current regimen. No change was made. Assessment & Plan (06/01/2020 10:40 AM CLINICAL PRODUCT MANAGER): Blood pressure is adequately controlled on current regimen. No change was made. Assessment & Plan (11/25/2019 10:10 AM CDT): Initial blood pressure in the office was normal. On repeat, a little high. He sees Dr. Hernandez frequently, so will defer to him to adjust medication if necessary. If his blood pressure does run consistently high, I would recommend increasing carvedilol back to 25 mg b.i.d.. Assessment & Plan (08/23/2019 11:45 AM CDT): Blood pressure became low after spironolactone. Diovan has been reduced. Today's blood pressure is normal. He will follow up closely with his primary care physician regarding his blood pressure and renal function. Over time, it might make sense to eliminate hydrochlorothiazide and increase Diovan. Assessment & Plan (06/21/2019 10:32 AM CLINICAL PRODUCT MANAGER): Blood pressure is too high. If it does not normalize with increased carvedilol, valsartan should be increased. Assessment & Plan (05/24/2019 10:13 AM CLINICAL PRODUCT MANAGER): Blood pressure is not controlled. Hopefully increasing carvedilol will help. I am reluctant to switch to Entresto prior to his blood pressure being controlled as that would necessitate him being off lisinopril for a day. Will continue to keep this in mind as an option once his blood pressure is better. Assessment & Plan (05/03/2019 5:29 PM CLINICAL PRODUCT MANAGER): Blood pressure is too high, but was 118/70 on 04/30/2019 when he saw his PCP. Will increase carvedilol. Assessment & Plan (04/02/2019 10:39 AM CLINICAL PRODUCT MANAGER): Diastolic blood pressure is a bit high, and hopefully will improve with carvedilol. Assessment & Plan (01/04/2019 3:44 PM CDT): Blood pressure is adequately controlled on current regimen. No change was made. Assessment & Plan (12/19/2018 4:31 PM CDT): Blood pressure is adequately controlled on current regimen. No change was made. Assessment & Plan (03/27/2018 11:11 AM CLINICAL PRODUCT MANAGER): Blood pressure is adequately controlled on current regimen. No change was made. Assessment & Plan (03/28/2017 11:22 AM CLINICAL PRODUCT MANAGER): Blood pressure is adequately controlled on current regimen. No change was made. Hyperlipidemia 03/28/2017 Assessment & Plan (11/05/2020 10:23 AM CDT): On chronic lipid lowering therapy with good control. No changes made. Assessment & Plan (11/25/2019 10:11 AM CDT): On chronic lipid lowering therapy with good control. No changes made. Assessment & Plan (05/03/2019 5:32 PM CLINICAL PRODUCT MANAGER): On chronic lipid lowering therapy with good control. No changes made. Assessment & Plan (04/02/2019 10:39 AM CLINICAL PRODUCT MANAGER): On chronic lipid lowering therapy with good control. No changes made. Assessment & Plan (01/04/2019 3:42 PM CDT): On chronic lipid lowering therapy with good control. No changes made. Assessment & Plan (12/19/2018 4:32 PM CDT): On chronic lipid lowering therapy with good control. No changes made. Assessment & Plan (03/27/2018 11:12 AM CLINICAL PRODUCT MANAGER): On chronic lipid lowering therapy with good control. No changes made. Assessment & Plan (03/28/2017 11:22 AM CLINICAL PRODUCT MANAGER): On chronic lipid lowering therapy with good control. No changes made. Sick sinus syndrome (CMS/HCC) 03/28/2017 Assessment & Plan (03/27/2018 11:11 AM CLINICAL PRODUCT MANAGER): Mild and asymptomatic Assessment & Plan (03/28/2017 11:22 AM CLINICAL PRODUCT MANAGER): Asymptomatic. Continue to monitor. Social History Tobacco Use Types Packs/Day Years Used Date Smoking Tobacco: Never Smokeless Tobacco: Never Tobacco Cessation:Counseling Given: Not Answered Alcohol Use Standard Drinks/Week Comments Yes 0 (1 standard drink = 0.6 oz pur e alcohol) rare beer AUDIT-C Answer Date Recorded Q1: How often do you have a drink containing alc ohol? Monthly or less 10/31/2023 Q2: How many drinks containi ng alcohol do you have on a typical day when you are drinking? 1 or 2 10/31/2023 Q3: How often do you have si x or more drinks on one occasion? Never 10/31/2023 Personal Safety Answer Date Recorded Have you ever been in or are you currently in a harmful physical or emotional relationship or is someone making you feel afraid or unsafe? Denies 10/31/2023 Sex and Gender Information Value Date Recorded Sex Assigned at Not on file Legal Sex Male 7:32 PM CLINICAL PRODUCT MANAGER Gender Identity Not on file Sexual Orientation Not on file Last Filed Vital Signs Vital Sign Reading Time Taken Comments Blood Pressure 119/81 03/05/2024 11:13 AM CLINICAL PRODUCT MANAGER Pulse 60 03/05/2024 11:13 AM CLINICAL PRODUCT MANAGER Temperature 36.4 C (97.6 F) 10/31/2023 1:55 PM CDT Respiratory Rate 16 03/05/2024 11:1 3 AM CLINICAL PRODUCT MANAGER Oxygen Saturation 92% 03/05/2024 11: 13 AM CLINICAL PRODUCT MANAGER Inhaled Oxygen Concentration - - Weight 115.3 kg (254 lb 1.6 oz) 11/12/2 024 11:13 AM CLINICAL PRODUCT MANAGER Height 188 cm (6' 2 ) 03/05/2024 11:13 AM CLINICAL PRODUCT MANAGER Body Mass Index 32.62 03/05/2024 11:13 AM CLINICAL PRODUCT MANAGER Plan of Treatment Not on file Medical Devices Implanted Type Area Marshmallow Machine Operator Device Identifier Shelf Expiration Date Model / Serial / Lot [employer] Vascade Mvp 6-12fr Venous Closure [id number] - [id number] - [id number] Implanted:Qty: 1 on 10/31/2023 by Todd Cochran III, MD at [facility] Collagen [employer] 03/24/2025 800-612C -[id number] / [id number] / [id number] [employer] Vascade Mvp 6-12fr Venous Closure [id number] - [id number] - [id number] Implanted:Qty: 1 on 10/31/2023 by Todd Cochran III, MD at [facility] Collagen [employer] 07/12/2025 800-612C -10U / [id number] / [id number] [employer] Vascade Mvp 6-12fr Venous Closure [id number] - [id number] - [id number] Implanted:Qty: 1 on 10/31/2023 by Todd Cochran III, MD at [facility] Collagen [employer] 07/12/2025 800-612C -10U / [id number] / [id number] [employer] [id number] Quadra Assura Mp 78g88ml Df-4 Is4 Is-1 Connector [id number] - [id number] - [id number] Implanted:Qty: 1 on 01/21/2019 by Joe Harp MD at [facility] ICD Left: Chest [employer] [id number] 12/22/2020 [id number] 0Q / [id number] / [employer] 7121q/65 Durata Sj4 7fr 65cm 2 Coil True Bipolar Cardioverter - [id number] - [id number] Implanted:Qty: 1 on 01/21/2019 by Joe Harp MD at [facility] Lead Left: Chest [employer] [id number] 07/22/2020 7121Q/65 / [id number] / [employer] 2088tc/52 Tendril Sts 6fr 52cm Is-1 Connector Active Fixation Bipolar Soft - [id number] - [id number] Implanted:Qty: 1 on 01/21/2019 by Joe Harp MD at [facility] Lead Left: Chest [employer] [id number] 12/22/2021 2088TC/5 2 / [id number] / [employer] 1456q/86 Quartet 4.7fr 86cm Quadripolar Is-4 Llll Connector 8 Curve Low - [id number] - [id number] Implanted:Qty: 1 on 01/21/2019 by Joe Harp MD at [facility] Lead Left: Chest [employer] [id number] 11/21/2021 1456Q/86 / [id number] / [employer] [id number] Vascade 6/7fr Bioabsorbable Vascular System Compression Collagen - S0 - [id number] Implanted:Qty: 1 on 07/02/2020 by Amari Burgess MD at [facility] Other - see comments [employer] 02/09/2022 [id number] -[id number] / 0 / [id number] Description:Right Femoral ve inous closure device [employer] [id number] Brien-Ashley andre Perimount Magna Ease 27mm Bioprosthesis - [id number] - [id number] Implanted:Qty: 1 on 07/06/2020 by Darvin Hernandez MD at [facility] Prosthetic Valve N/A: Aortic Valve [employer] 01/30/2023 [id number] 7MM / [id number] / [id number] Procedures Procedure Name Priority Date/Time Associated Diagnosis Comments DEVICE CHECK - REMOTE Routine 03/25/2024 11:19 AM CLINICAL PRODUCT MANAGER NICM (nonischemic cardiomyopathy) (CMS/HCC) (HCC) from Last 3 Months Results * DEVICE CHECK - REMOTE (03/25/2024 11:19 AM CLINICAL PRODUCT MANAGER) Anatomical Region Laterality Modality Other Narrative 03/27/2024 11:27 AM CLINICAL PRODUCT MANAGER Table formatting from the original result was not included. BiV ICD CHECK (REMOTE) Patient ID: Eulalio Almanza is a 79 y.o. male. This patient received a Robles BiV ICD. They had a routine remote transmission on 03/25/2024 Device implant indications: Nonischemic cardiomyopathy, CHF, LBBB Interrogation of the patient's device demonstrates the following: Presenting EGM: A paced Bi V paced @ 60 bpm Original Device Settings Right Atrium Right Ventricle Left Ventricle Sensitivity (mV) Auto mV Auto mV N/a mV Pacing Outputs 2.0 V @ 0.5 ms 2.0 V @ 0.5 ms 2.375 V @ 0.5 ms Testing Measurements Right Atrium Right Ventricle Left Ventricle Sensitivity (mV) 2.2 mV 11.1 mV Not done mV Impedence (Ohms) 410 ohms 400 ohms 650 ohms Pace Threshold Not done V @ ms 0.625 V @ 0.5 ms 1.375 V @ 0.5 ms Pacing % 83 % 96 % 96 % HV Lead Impedance N/A 40 ohms N/A Battery Status: 1.5 years to RISHABH, charge time 8.9 seconds. Episodes last 90 days/Comments: AF Fleming <1 %, numerous episodes classified as AT/AF with the longest duration 1 minute and 16 seconds on 03/22. Ventricular rates ranged from the 90s to low 100s. No new ventricular events. NORMAL DEVICE FUNCTION PROGRAMMED MEDICATIONS: Anti-coagulant(s): Aspirin 81 mg, Eliquis 5 mg twice a day Anti-arrhythmic(s): Coreg 3.125 mg twice a day PLAN: 1) normal Robles BiV ICD evaluation 2) Robles remote transmission scheduled in 3 months. 3) Programming appropriate for device settings Demi Delanty, RN us Todd Cochran III, MD [facility] PROCEDURES Final Result from Last 3 Months Insurance MEDICARE [facility] MEDICARE [employer] MEDICARE SUPPLEMENT [facility] MEDICARE [facility] MEDICARE SUPPLEMENT Advance Directives For more information, please contact: [phone] * Full Code (Latest Code Status on File) Date Activated Date Inactivated Comments 07/06/2020 1:57 PM 07/10/2020 3:07 PM * Full Code Date Activated Date Inactivated Comments 07/01/2019 9:07 AM 07/02/2019 4:46 AM * Full Code Date Activated Date Inactivated Comments 03/11/2019 8:57 AM 2019 4:48 AM Care Teams Nurse Technician Relationship Specialty Start Date End Date Artur Hernandez MD [address] [facility] [address] [employer]NAL MEDICINE [place], [place] [id number] PCP - General 10/30/12 Giuliana Gómez MD [address] [place] [address] Consulting Physician Cardiology 07/08/20 Kenny Chavez MD [address] [facility] [address] [place] [address] Transplant 03/24/24
--- OUTSIDE RECORDS SUMMARY | 2024-06-17 14:29 | XMS_ITS | Clinical Summary ---
Author Organization [facility] Address [address] [place] [address] Phone Care Team Providers Care Buggy Driver Name Role Phone Unavailable Primary Care Provider Unavailabl e Social History Tobacco Use Types Packs/Day Years Used Date Smoking Tobacco: Never Assessed Sex and Gender Information Value Date Recorded Sex Assigned at Not on file Legal Sex Male 11:38 PM CDT Gender Identity Not on file Sexual Orientation Not on file Plan of Treatment Health Maintenance Due Date Last Done Comments Hepatitis C Virus (HCV) Screening 1945 TdaP Immunization 1945 Pneumococcal Immunization (5 0+ years) (1 of 1 - PCV) 1997 Zoster Immunization (1 of 2) 1997 Respiratory Syncytial Virus (RSV) Immunization (Adult) (1 - 1-dose 75+ series) 2022 Influenza Immunization (#1) 2023 SARS-COV-2 Immunization ( season) 2023 Colonoscopy High Risk Discontinued 08/15/2012 Colonoscopy Discontinued 08/15/2012 Colorectal Cancer Screening Discontinued Cologuard Discontinued Hepatitis B Immunization Aged Out No longer eligible based on patient's age to complete this topic Immunochemical Fecal Occult Blood Discontinued Meningococcal Immunization (ACWY) Aged Out No longer eligible based on patient's age to complete this topic Rotavirus Immunization Aged Out No lo nger eligible based on patient's age to complete this topic Procedures Procedure Name Priority Date/Time Associated Diagnosis Comments COLONOSCOPY Routine 08/15/2012 from Last 3 Months or Most Recently Relevant to Health Maintenance Results * HM COLONOSCOPY (08/15/2012) us Serafin Ibrahim DO PROCEDURE/MINOR SURGICAL ORDERA BLES Final Result from Last 3 Months or Most Recently Relevant to Health Maintenance
--- OUTSIDE RECORDS SUMMARY | 2024-06-17 14:29 | XMS_ITS | Encounter Summary ---
Author Organization [facility] Address [address] [place] [address] Care Team Providers Care Tuber Machine Operator Helper Name Role Phone Artur Hernandez MD Primary Care Provider [phone] Miscellaneous, Not In File Unavailable Unava ilable Giuliana Gómez MD Unavailable [phone] Kenyn Chavez MD Unavailable [phone] Encounter Details Date Type Department Care Team (Late st Contact Info) Description 06/19/2017 Telephone [facility] OP Cardiac Testing [address] [facility] [address] [place] [address] Dulce Watkins Social History Tobacco Use Types Packs/Day Years Used Date Smoking Tobacco: Never Smokeless Tobacco: Never Alcohol Use Standard Drinks/Week Comments Yes 0 (1 standard drink = 0.6 oz pur e alcohol) Sex and Gender Information Value Date Recorded Sex Assigned at Not on file Legal Sex Male 7:32 PM FILM EXAMINER Gender Identity Not on file Sexual Orientation Not on file documented as of this encounter Plan of Treatment Not on file documented as of this encounter Visit Diagnoses Not on filedocumented in this encounter Care Teams Tuber Machine Operator Helper Relationship Specialty Start Date End Date Artur Hernandez MD [address] [place] [address] PCP - General 10/30/12 Miscellaneous, Not In File 07/01/1903/04 Giuliana Gómez MD [address] [facility] [address] [place] [address] Consulting Physician Cardiology 07/08/20 Kenny Chavez MD [address] [facility] [address] [place] [address] Transplant 03/24/24 documented as of this encounter
--- OUTSIDE RECORDS SUMMARY | 2024-06-17 14:29 | XMS_ITS | Clinical Summary ---
Author Organization [facility] Address [address] [place] [id number] Phone Care Team Providers Care Wire Straightening Machine Operator Name Role Phone Artur Hernandez MD Primary Care Provider [phone] Allergies Active Allergy Reactions Criticality Noted Date Comments Spironolactone Other (see comments) Low 07/11/2020 did not have allergic reaction but threw lab work off. pt cant tolerate it. Medications Medication Sig Dispensed Refills Start Date End Date Status Eliquis 5 MG tablet Take 5 mg by mouth 2 (two) times a day 05/28/2020 Active aspirin EC 81 MG EC tablet Take 81 mg by mouth daily Active atorvastatin (LIPITOR) 20 MG tablet 06/12/2020 Active metFORMIN (GLUCOPHAGE) 1000 MG tablet Take 1,000 mg by mouth 2 (two) times a day with meals 04/06/2020 Active tamsulosin (FLOMAX) 0.4 MG 24 hr capsule 06/12/2020 Acti ve amiodarone (PACERONE) 200 MG tablet Take 200 mg by mouth 1 (one) time each day Active cholecalciferol (VITAMIN D-3) 25 MCG (1000 UT) capsule Active ferrous sulfate 325 (65 Fe) MG tablet Take 1 tablet by mouth 2 (two) times a day 09/07/2020 Active Folic Acid 0.8 MG capsule 09/11/2020 Active potassium chloride (MICRO-K) 10 MEQ CR capsule TAKE 1 CAPSULE BY MOUTH EVERY OTHER DAY 10/19/2020 Active carvedilol (COREG) 6.25 MG tablet Take 6.25 mg by mouth 2 (two) times a day with meals 10/31/2020 Active Entresto 24-26 MG per tablet 04/26/2021 Active Jardiance 25 MG tablet 04/13/2021 Ac tive cyanocobalamin (VITAMIN B-12) 1000 MCG/ML injection 02/28/2021 Active furosemide (LASIX) 20 MG tablet Take 20 mg by mouth 2 (two) times a week 10/02/2021 Active Active Problems Problem Noted Date Diagnosed Date Aortic valve disorder 08/06/2020 Overview (05/07/2021): Last Assessment & Plan: Bioprosthetic aortic valve is functioning normally. Stage 3b chronic kidney disease 06/12/2020 Prosthetic aortic valve stenosis 06/09/2020 Chronic systolic congestive heart failure 2019 Overview (06/12/2020): Last Assessment & Plan: No evidence of congestive heart failure at this time. He is on no diuretic therapy. Cardiac defibrillator in situ 01/21/2019 Overview (06/12/2020): Robles Quadra Assura BI-V ICD implanted on 01/21/19 for NICM/CHF/LBBB. Loyd Whittington Last Assessment & Plan: Followed by Dr. Harp, with normal function when last assessed. Dilated cardiomyopathy 12/19/2018 Overview (07/11/2020): Last Assessment & Plan: Ejection fraction has normalized with medications, maintenance of sinus rhythm, and biventricular pacing. Persistent atrial fibrillation 12/18/2018 Overview (06/12/2020): Last Assessment & Plan: Most recent device interrogation showed no atrial fibrillation on amiodarone. Will defer to Dr. Harp regarding duration of amiodarone therapy. Essential hypertension 03/28/2017 Overview (06/12/2020): Last Assessment & Plan: Blood pressure is adequately controlled on current regimen. No change was made. Hyperlipidemia 03/28/2017 Overview (06/12/2020): Last Assessment & Plan: On chronic lipid lowering therapy with good control. No changes made. Immunizations Name Administration Dates Next Due Influenza TIV (IM) 03/08/2021,01/23/2020 Pneumococcal Conjugate 06/22/2021 Family History Medical History Relation Comments Kidney disease Neg Hx Social History Tobacco Use Types Packs/Day Years Used Date Smoking Tobacco: Never Smokeless Tobacco: Never Alcohol Use Standard Drinks/Week Comments Yes 0 (1 standard drink = 0.6 oz pur e alcohol) rare Sex and Gender Information Value Date Recorded Sex Assigned at Not on file Gender Identity Not on file Sexual Orientation Not on file Last Filed Vital Signs Vital Sign Reading Time Taken Comments Blood Pressure 112/72 11/08/2021 8:52 AM CDT Pulse 60 11/08/2021 8:52 AM CDT Temperature 36.3 C (97.4 F) 11/08/2021 8:52 AM CDT Respiratory Rate - - Oxygen Saturation - - Inhaled Oxygen Concentration - - Weight 114 kg (251 lb) 11/08/2021 8:52 AM CDT Height 188 cm (6' 2 ) 11/08/2021 8:52 AM CDT Body Mass Index 32.23 11/08/2021 8:52 AM CDT Plan of Treatment Health Maintenance Due Date Last Done Comments Pneumococcal PPSV23/PCV13 65 + Years / Low and Medium Risk (1 of 4 - PCV) 2012 Influenza Vaccine (#1) 2023 03/08/2021, 2019 Care Teams Wire Straightening Machine Operator Relationship Specialty Start Date End Date Artur Hernandez MD [address] [facility] [address] [place] [address] PCP - General Internal Medicine 06/09/20
--- OUTSIDE RECORDS SUMMARY | 2024-06-17 14:29 | XMS_ITS | Clinical Summary ---
Author Organization [facility] Address [address] [place] [id number] Care Team Providers Care Real Estate Paralegal Name Role Phone Artur Hernandez MD Primary Care Provider [phone] Giuliana Gómez MD Unavailable [phone] Kenny Chavez MD Unavailable [phone] Allergies Active Allergy Reactions Criticality Noted Date [...] 06/21/2023 Assessment & Plan (06/21/2023 2:56 PM LIFE SCIENCE TEACHER): -remains compliant on Eliquis -denies any issues with bruising or bleeding -recommend continued therapy for thromboprophylaxis Aftercare following surgery 08/11/2020 Aortic valve disease 08/06/2020 Assessment & Plan (03/11/2021 11:09 AM LIFE SCIENCE TEACHER): Bioprosthetic aortic valve is functioning normally. Assessment [...] cardiac rehab. Nonrheumatic aortic valve insufficiency 07/03/19 21 Overview (07/02/2020): Added automatically from request for surgery [id number] Aortic valve insufficiency 06/09/2020 Chronic systolic congestive heart failure (CMS/H CC) 07/04/2019 Assessment & Plan (02/07/2024 11:27 AM CDT): Chronic, stable. S/p HOE RUNNER-D system implantation. Excellent device function by interrogation today. BiV pacing percentage 87% without a clear explanation. Reported PVC% is 1%. No PVCs in office today. --Continue remote device monitoring Assessment & Plan (03/11/2021 11:09 AM LIFE SCIENCE TEACHER): Congestive heart failure appears to be well [...] [place] Assessment & Plan (03/10/2024 8:28 PM LIFE SCIENCE TEACHER): Followed by the Device [facility]. Assessment & Plan (06/21/2023 3:01 PM LIFE SCIENCE TEACHER): -status post bi V ICD placement (2018) [...] needed. Assessment & Plan (06/01/2020 10:41 AM LIFE SCIENCE TEACHER): Followed by Dr. Harp, with normal function when last assessed. Assessment & Plan (05/03/2019 5:32 PM LIFE SCIENCE TEACHER): Paced QRS complex is wide. This may not result in improvement in his cardiomyopathy. Will communicate with Dr. Harp. Assessment & Plan (04/02/2019 10:40 AM LIFE SCIENCE TEACHER): To be interrogated today. Dilated cardiomyopathy (CMS/HCC) 12/19/2018 Assessment & Plan (03/10/2024 8:22 PM LIFE SCIENCE TEACHER): Mr. Almanza endorses NYHA Class II heart failure symptoms. He is euvolemic on exam and tolerating GDMT including Entresto, Jardiancem, and Carvedilol. I have made no changes to his regimen today and have asked him to follow up in 3 months. Assessment & Plan (09/27/2023 1:14 PM CDT): S/p HOE RUNNER-D system implantation. Inadequate HOE RUNNER delivery due to rapid AF. --AF ablation as above --Repeat TTE to reassess LV function Assessment & Plan (03/11/2021 11:11 AM LIFE SCIENCE TEACHER): Echo shows marked worsening compared with that [...] month. Assessment & Plan (06/01/2020 10:39 AM LIFE SCIENCE TEACHER): Ejection fraction has normalized with medications, maintenance [...] below. Assessment & Plan (06/21/2019 10:31 AM LIFE SCIENCE TEACHER): He is minimally symptomatic, which has been [...] Chavez. Assessment & Plan (05/24/2019 10:13 AM LIFE SCIENCE TEACHER): Tolerating carvedilol. Increased dosage to 12.5 mg b.i.d. and return in three weeks for an increase to 25 mg b.i.d.. Will plan to reassess EF once he has been on this dosage for 2-3 months. He remains minimally symptomatic. Assessment & Plan (05/03/2019 5:27 PM LIFE SCIENCE TEACHER): Reviewed again that it is great that [...] wrong). Assessment & Plan (04/02/2019 10:40 AM LIFE SCIENCE TEACHER): Still with severe dilated cardiomyopathy, ejection fraction [...] ejection fraction does not improve significantly with hoahaoism of sinus rhythm, would consider cardiac resynchronization therapy. LBBB (left bundle branch block) 12/19/2018 Assessment & Plan (08/06/2020 8:14 AM CDT): Status post Bi V ICD. Assessment & Plan (11/25/2019 10:09 AM CDT): This likely contributed to his cardiomyopathy and he is now biventricular paced. Assessment & Plan (06/21/2019 10:35 AM LIFE SCIENCE TEACHER): Received Bi V ICD on 01/11/2019. Echocardiogram three months later showed an EF of 31%, on improved. Assessment & Plan (05/03/2019 5:32 PM LIFE SCIENCE TEACHER): This may have contributed to his cardiomyopathy. Unfortunately, he is maintaining a wide complex paced rhythm despite biventricular pacing. Assessment & Plan (04/02/2019 10:39 AM LIFE SCIENCE TEACHER): Status post biventricular device. Assessment & Plan [...] echocardiogram in March 2018. Paroxysmal atrial fibrillation ([facility]) 019 Assessment & Plan (03/10/2024 8:28 PM LIFE SCIENCE TEACHER): Remains on Eliquis. Beta radha dose increased by EP for increased AF burden. Assessment & Plan (02/07/2024 11:27 AM CDT): Chronic, stable. Doing well post-AF ablation without recurrence. --Continue apixaban 5 mg BID --Continue carvedilol 25 mg BID Assessment & Plan (09/27/2023 1:13 PM CDT): Probably symptomatic, with fatigue/ effort intolerance. Occurring in context of NICM and LBBB s/p HOE RUNNER-D system implantation. AF now interfering with adequate delivery of HOE RUNNER despite maximum dose BB therapy. Significant risk [...] his advanced age, cardiomyopathy and presence of HOE RUNNER system. I reviewed the concept that patients [...] w/anesthesia --DANNY on table prior to procedure --MD2U device call center representative to be available for programming periprocedurally --Continue apixaban 5 mg BID. Hold starting the evening prior to procedure. --Continue carvedilol 25 mg BID Pt will follow-up 1 month post-ablation in the AF clinic with a nurse practitioner. Follow-up with me 3 months post-ablation. Assessment & Plan (06/21/2023 3:42 PM LIFE SCIENCE TEACHER): -atrial fibrillation noted upon device interrogation today, [...] re-evaluate Assessment & Plan (03/11/2021 11:11 AM LIFE SCIENCE TEACHER): By device interrogation he is maintaining sinus rhythm on low-dose amiodarone. He is also on Eliquis 5 mg b.i.d.. Assessment & Plan (11/05/2020 10:22 AM CDT): Follows with EP. He remains on amiodarone and Eliquis. Assessment & Plan (08/06/2020 8:12 AM CDT): In sinus rhythm on amiodarone. He follows with Dr. Harp for his heart rhythm. Assessment & Plan (06/01/2020 10:41 AM LIFE SCIENCE TEACHER): Most recent device interrogation showed no atrial [...] anticoagulation. Assessment & Plan (06/21/2019 10:35 AM LIFE SCIENCE TEACHER): Device remote through 05/21/2019 showed that he was still in atrial fibrillation. He is scheduled for cardioversion with Dr. Harp in early June. Will message device staff to check and make sure that he is still in atrial fibrillation. Assessment & Plan (05/24/2019 10:14 AM LIFE SCIENCE TEACHER): On amiodarone. Seeing EP. Cardioversion planned for June. Assessment & Plan (05/03/2019 5:32 PM LIFE SCIENCE TEACHER): Anticoagulated. Plan for cardioversion in two months. Assessment & Plan (04/02/2019 10:39 AM LIFE SCIENCE TEACHER): He is on amiodarone and Eliquis. He has a device check today and appointment with Dr. Harp. Assessment & Plan (01/04/2019 3:39 PM CDT): [...] explained to him and his that with hoahaoism of sinus rhythm it is possible that his heart rate will be slow, and a pacemaker could be necessary. I did discuss his case informally with Dr. Harp, who agrees with cardioversion at this point given his LV dysfunction. H/O aortic valve replacement with tissue graft 1 05/29/2016 Assessment & Plan (03/10/2024 8:29 PM LIFE SCIENCE TEACHER): Normal function on echo earlier this year. Assessment & Plan (06/01/2020 10:43 AM LIFE SCIENCE TEACHER): He has an aortic insufficiency murmur today [...] function. Assessment & Plan (06/21/2019 10:36 AM LIFE SCIENCE TEACHER): Bioprosthetic aortic valve is functioning normally. Assessment & Plan (05/03/2019 5:29 PM LIFE SCIENCE TEACHER): Functioning normally. Assessment & Plan (04/02/2019 10:39 AM LIFE SCIENCE TEACHER): Aortic valve is functioning normally. Assessment & Plan (01/04/2019 3:42 PM CDT): Aortic valve is functioning normally. Assessment & Plan (12/19/2018 4:29 PM CDT): Aortic valve is functioning normally. Assessment & Plan (03/27/2018 11:11 AM LIFE SCIENCE TEACHER): Mild transvalvular gradient, without significant change since 2015. We discussed the potential for valve in valve TAVR when/if this valve fails. Assessment & Plan (03/28/2017 11:23 AM LIFE SCIENCE TEACHER): No symptoms of aortic stenosis, and valve was functioning well on last year's echo. His exam today does not suggest that this is changed significantly. Will obtain an echo in one year, two years from his last one. H/O aortic root repair 03/28/2017 Assessment & Plan (03/28/2017 11:22 AM LIFE SCIENCE TEACHER): He has not had a recent chest CT. Will order. His last one was done without contrast which made measurements difficult. Essential hypertension 03/28/2017 Assessment & Plan (03/11/2021 11:11 AM LIFE SCIENCE TEACHER): Blood pressure is controlled on current regimen. Assessment & Plan (11/05/2020 10:23 AM CDT): Blood pressure is adequately controlled on current regimen. No change was made. Assessment & Plan (08/06/2020 8:12 AM CDT): Blood pressure is adequately controlled on current regimen. No change was made. Assessment & Plan (06/01/2020 10:40 AM LIFE SCIENCE TEACHER): Blood pressure is adequately controlled on current [...] Diovan. Assessment & Plan (06/21/2019 10:32 AM LIFE SCIENCE TEACHER): Blood pressure is too high. If it does not normalize with increased carvedilol, valsartan should be increased. Assessment & Plan (05/24/2019 10:13 AM LIFE SCIENCE TEACHER): Blood pressure is not controlled. Hopefully increasing carvedilol will help. I am reluctant to switch to Entresto prior to his blood pressure being controlled as that would necessitate him being off lisinopril for a day. Will continue to keep this in mind as an option once his blood pressure is better. Assessment & Plan (05/03/2019 5:29 PM LIFE SCIENCE TEACHER): Blood pressure is too high, but was 118/70 on 04/30/2019 when he saw his PCP. Will increase carvedilol. Assessment & Plan (04/02/2019 10:39 AM LIFE SCIENCE TEACHER): Diastolic blood pressure is a bit high, and hopefully will improve with carvedilol. Assessment & Plan (01/04/2019 3:44 PM CDT): Blood pressure is adequately controlled on current regimen. No change was made. Assessment & Plan (12/19/2018 4:31 PM CDT): Blood pressure is adequately controlled on current regimen. No change was made. Assessment & Plan (03/27/2018 11:11 AM LIFE SCIENCE TEACHER): Blood pressure is adequately controlled on current regimen. No change was made. Assessment & Plan (03/28/2017 11:22 AM LIFE SCIENCE TEACHER): Blood pressure is adequately controlled on current regimen. No change was made. Hyperlipidemia 03/28/2017 Assessment & Plan (11/05/2020 10:23 AM CDT): On chronic lipid lowering therapy with good control. No changes made. Assessment & Plan (11/25/2019 10:11 AM CDT): On chronic lipid lowering therapy with good control. No changes made. Assessment & Plan (05/03/2019 5:32 PM LIFE SCIENCE TEACHER): On chronic lipid lowering therapy with good control. No changes made. Assessment & Plan (04/02/2019 10:39 AM LIFE SCIENCE TEACHER): On chronic lipid lowering therapy with good control. No changes made. Assessment & Plan (01/04/2019 3:42 PM CDT): On chronic lipid lowering therapy with good control. No changes made. Assessment & Plan (12/19/2018 4:32 PM CDT): On chronic lipid lowering therapy with good control. No changes made. Assessment & Plan (03/27/2018 11:12 AM LIFE SCIENCE TEACHER): On chronic lipid lowering therapy with good control. No changes made. Assessment & Plan (03/28/2017 11:22 AM LIFE SCIENCE TEACHER): On chronic lipid lowering therapy with good control. No changes made. Sick sinus syndrome (CMS/HCC) 03/28/2017 Assessment & Plan (03/27/2018 11:11 AM LIFE SCIENCE TEACHER): Mild and asymptomatic Assessment & Plan (03/28/2017 11:22 AM LIFE SCIENCE TEACHER): Asymptomatic. Continue to monitor. Encounters Date Type Department Care Team Description 03/25/2024 8:00 AM LIFE SCIENCE TEACHER Ancillary Procedure [facility] [address] [place] [phone] ICD (implantable cardioverter-defibr illator), biventricular, in situ (Primary Dx); NICM (nonischemic cardiomyopathy) (CMS/HCC) ([facility]) 03/19/2024 Documentation [facility] [address] [place] [id number] Kirstie Doherty NP from Last 3 Months Surgical History Surgery Date Site/Laterality Comments CHOLECYSTECTOMY Cholecystectomy HIATAL HERNIA REPAIR Laparoscopic CARDIOVERSION 04/24/2018 - 04/23/2019December and February INSERT / REPLACE / REMOVE PACEMAKER 12/23/2018 - 01/21/2019 Bi V ICD / SJM AORTIC VALVE REPLACEMENT 06/23/2007 - 07/23/2007 opnote describes 27mm porcine CE valve in 32 mm Gelweave Valsalva root graft AORTIC VALVE REPLACEMENT 07/06/2020 Medical History Medical History Date Comments Hypertension Hyperlipidemia Sleep apnea Diabetes mellitus ([facility]) Poor historian 12/2018 CHF (congestive heart failur e) (CMS/HCC) ([facility]) Cardiomyopathy, dilated (CMS/HCC) ([facility]) 2019 EF 21% at time of AFib presentation Atrial fibrillation (CMS/HCC) ([facility]) 2019 Cardioverted x2 2019, follows with Dr Harp and HUSSAIN Doherty Chronic kidney disease (CKD) Cr 2.[address] Hernandez office last week Family History Medical History Relation Name Comments Heart failure Father 2 Congestive Hea rt Failure; Relation Name Status Comments Father 1 Alive Father 2 Social History Tobacco Use Types Packs/Day Years [...] on file Legal Sex Male 7:32 PM LIFE SCIENCE TEACHER Gender Identity Not on file Sexual Orientation Not on file Obstetrics History Last Filed Vital Signs Vital Sign Reading Time Taken Comments Blood Pressure 119/81 03/05/2024 11:13 AM LIFE SCIENCE TEACHER Pulse 60 03/05/2024 11:13 AM LIFE SCIENCE TEACHER Temperature 36.4 C (97.6 F) 10/31/2023 1:55 PM CDT Respiratory Rate 16 03/05/2024 11:1 3 AM LIFE SCIENCE TEACHER Oxygen Saturation 92% 03/05/2024 11: 13 AM LIFE SCIENCE TEACHER Inhaled Oxygen Concentration - - Weight 115.3 kg (254 lb 1.6 oz) 024 11:13 AM LIFE SCIENCE TEACHER Height 188 cm (6' 2 ) 03/05/2024 11:13 AM LIFE SCIENCE TEACHER Body Mass Index 32.62 03/05/2024 11:13 AM LIFE SCIENCE TEACHER Plan of Treatment Health Maintenance Due Date Last Done Comments Depression Screening 1945 Hepatitis C Screening 1945 DTaP/Tdap/Td Vaccine (1 - Tdap) 1958 Hepatitis B Screening 1965 Well Visit 65+ 2012 Pneumococcal vaccine 65+ (2 of 2 - PPSV23) 08/17/2021 06/22/2021 Covid-19 Vaccine (3 - 2023-2 5 season) 2023 07/13/2020, 06/11/2020 Influenza Vaccine (#1) 2023 , 01/23/2020, 12/24/2019, Additional history exists Fall Risk Assessment 10/30/2024 10/31/2023 Zoster Vaccine Completed 03/26/2020, 12/24/2019 Medical Devices Implanted Type Area General Office Assistant Device Identifier Shelf Expiration Date Model / Serial / Lot Sing [employer] Vascade Mvp 6-12fr Venous Closure [id number] - [id number] - [id number] Implanted:Qty: 1 on 10/31/2023 by Todd Cochran III, MD at [facility] Collagen [employer] 03/24/2025 800-612C -10U / [id number] / [id number] [employer] Vascade Mvp 6-12fr Venous Closure [id number] - [id number] - [id number] Implanted:Qty: 1 on 10/31/2023 by Todd Cochran III, MD at [facility] Collagen [employer] 07/12/2025 800-612C -10U / [id number] / [id number] [employer] Vascade Mvp 6-12fr Venous Closure [id number] - [id number] - [id number] Implanted:Qty: 1 on 10/31/2023 by Todd Cochran III, MD at [facility] Collagen [employer] 07/12/2025 800-612C -10U / [id number] / [id number] [employer] [id number] Quadra Assura Mp [id number] Df-4 Is4 Is-1 Connector [id number] - [id number] - [id number] Implanted:Qty: 1 on 01/21/2019 by Joe Harp MD at [facility] ICD Left: Chest [employer] [id number] 12/22/2020 [id number] 0Q / [id number] / [employer] 7121q/65 Durata Sj4 7fr 65cm 2 Coil True Bipolar Cardioverter - [id number] - [id number] Implanted:Qty: 1 on 01/21/2019 by Joe Harp MD at [facility] Lead Left: Chest [employer] [id number] 07/22/2020 7121Q/65 / [id number] / [employer] 8tc/52 Tendril Sts 6fr 52cm Is-1 Connector Active Fixation Bipolar Soft - [id number] - [id number] Implanted:Qty: 1 on 01/21/2019 by Joe Harp MD at [facility] Lead Left: Chest [employer] [id number] 12/22/2021 2088TC/5 2 / [id number] / [employer] 1456q/86 Quartet 4.7fr 86cm Quadripolar Is-4 Llll Connector 8 Curve Low - [id number] - [id number] Implanted:Qty: 1 on 01/21/2019 by Joe Harp MD at [facility] Lead Left: Chest [employer] [id number] 11/21/2021 1456Q/86 / [id number] / [employer] [id number] Vascade 6/7fr Bioabsorbable Vascular System Compression Collagen - S0 - [id number] Implanted:Qty: 1 on 07/02/2020 by Amari Burgess MD at [facility] Other - see comments [employer] 02/09/2022 [id number] -[id number] / 0 / [id number] Description:Right Femoral ve inous closure device [employer] [id number] Brien-Edwa rds Perimount Magna Ease 27mm Bioprosthesis - [id number] - [id number] Implanted:Qty: 1 on 07/06/2020 by Darvin Hernandez MD at [facility] Prosthetic Valve N/A: Aortic Valve [employer] 01/30/2023 [id number] 7MM / [id number] / [id number] Procedures Procedure Name Priority Date/Time Associated Diagnosis Comments DEVICE CHECK - REMOTE Routine 03/25/2024 11:19 AM LIFE SCIENCE TEACHER NICM (nonischemic cardiomyopathy) (CMS/HCC) (HCC) from Last 3 Months Results * DEVICE CHECK - REMOTE (03/25/2024 11:19 AM LIFE SCIENCE TEACHER) Anatomical Region Laterality Modality Other Narrative 03/27/2024 11:27 AM LIFE SCIENCE TEACHER Table formatting from the original result was [...] 8.9 seconds. Episodes last 90 days/Comments: AF [place] <1 %, numerous episodes classified as AT/AF with the longest duration 1 minute and 16 seconds on 03/22. Ventricular rates ranged from the 90s to low 100s. No new ventricular events. NORMAL DEVICE FUNCTION PROGRAMMED MEDICATIONS: Anti-coagulant(s): Aspirin 81 mg, Eliquis 5 mg twice a day Anti-arrhythmic(s): Coreg 3.125 mg twice a day PLAN: 1) normal Orbles BiV ICD evaluation 2) Robles remote transmission scheduled in 3 months. 3) Programming appropriate for device settings Demi Mcgraw RN Todd Cochran III, MD [facility] PROCEDURES Final Result from Last 3 Months Insurance MEDICARE [facility] MEDICARE [employer]OSS MEDICARE SUPPLEMENT MEDICARE [facility] MEDICARE MEDICARE [place] MEDICARE SUPPLEMENT Advance Directives For more information, please contact: [phone] * Full Code (Latest Code Status on File) Date Activated Date Inactivated Comments 07/06/2020 1:57 PM 07/10/2020 3:07 PM * Full Code Date Activated Date Inactivated Comments 07/01/2019 9:07 AM 07/02/2019 4:46 AM * Full Code Date Activated Date Inactivated Comments 03/11/2019 8:57 AM 2019 4:48 AM Care Teams Real Estate Paralegal Relationship Specialty Start Date End Date Artur Hernandez MD [address] [facility] [address] [place] [address] PCP - General 10/30/12 Giuliana Gómez MD [address] [place] [address] Consulting Physician Cardiology 07/08/20 Kenny Chavez MD [address] [facility] [address] [place] [address] Transplant 03/24/24
--- OUTSIDE RECORDS SUMMARY | 2024-06-17 14:29 | XMS_ITS | Encounter Summary ---
Author Organization [facility] Healthcare Address [address] [place] [address] Care Team Providers Care Program Eligibility Specialist Name Role Phone Artur Hernandez MD Primary Care Provider [phone] Miscellaneous, Not In File Unavailable Unava ilable Giuliana Gómez MD Unavailable [phone] Kenny Chavez MD Unavailable [phone] Encounter Details Date Type Department Care Team (Late st Contact Info) Description 06/12/2020 Telephone [facility] - Imaging [address] [place] [address] Transcribed Order, Provider Social History Tobacco Use Types Packs/Day Years Used Date Smoking Tobacco: Never Smokeless Tobacco: Never Alcohol Use Standard Drinks/Week Comments Yes 0 (1 standard drink = 0.6 oz pur e alcohol) rare beer Sex and Gender Information Value Date Recorded Sex Assigned at Not on file Legal Sex Male 7:32 PM GROCERY PACKER Gender Identity Not on file Sexual Orientation Not on file documented as of this encounter Plan of Treatment Not on file documented as of this encounter Visit Diagnoses Not on filedocumented in this encounter Care Teams Program Eligibility Specialist Relationship Specialty Start Date End Date Artur Hernandez MD [address] [place] [address] PCP - General 10/30/12 Miscellaneous, Not In File 07/01/1903/04 Giuliana Gómez MD [address] [facility] [address] [place] [address] Consulting Physician Cardiology 07/08/20 Kenny Chavez MD [address] [facility] [address] [place] [address] Transplant 03/24/24 documented as of this encounter
== END 2024-06-17 12:45 | disposition home or self-care (01) ==
PROVIDERS: PCP Internal Medicine; Visit Provider Internal Medicine
DX: R10.84 Generalized abdominal pain (principal); R14.0 Abdominal distension (gaseous); R19.4 Change in bowel habit; N28.1 Cyst of kidney, acquired; R16.1 Splenomegaly, not elsewhere classified
CPT/HCPCS: 74240; 74248; 76700

== ENCOUNTER 2024-08-14 13:37 | Outpatient (CLI) | payer MEDICARE, SELFPAY ==
--- NOTE | ~2024-08-14 | XR_ITS ---
CHEST RADIOGRAPH, PA AND LATERAL CLINICAL HISTORY: R05.9 - Cough, unspecified . COMPARISON: 04/26/2023 TECHNIQUE: PA and lateral views of the chest. FINDINGS Sternal wires and mediastinal clips are identified, the wires are midline and intact. The left mid lung is partially obscured due to pacemaker/AICD generator. Wires project over the right atrium, coronary sinus and right ventricle. Prosthetic valve identified within the aortic position. The remainder of the cardiomediastinal silhouette is otherwise unremarkable. The lungs are clear. IMPRESSION: No focal infiltrate or effusion. Reviewed, dictated and finalized at location A.
== END 2024-08-14 13:38 | disposition home or self-care (01) ==
LOC: GOSHIMG 13:38
PROVIDERS: PCP Internal Medicine; Visit Provider Internal Medicine
DX: R05.9 Cough, unspecified (principal); R50.9 Fever, unspecified
CPT/HCPCS: 71046

== ENCOUNTER 2024-08-14 13:50 | Outpatient (CLI) | payer MEDICARE, SELFPAY ==
--- OUTSIDE RECORDS SUMMARY | 2024-08-14 15:40 | XMS_ITS | Encounter Summary ---
Author Organization [facility] Healthcare Address [address] [place] [address] Care Team Providers Care Powertrain Calibration Engineer Name Role Phone Artur Hernandez MD Primary Care Provider [phone] Giuliana Gómez MD Unavailable [phone] Kenny Chavez MD Unavailable [phone] Reason for Visit * Cardiology (Routine) - Closed Specialty Diagnoses / Procedures Referred By Contac t Referred To Contact Diagnoses ICD (implantable cardioverter-defibrillator), biventricular, in situ Procedures DEVICE CHECK - IN OFFICE Todd Cochran III, MD [address] [address] Phone: tel: fax: [facility] Referral ID Status Reason Start Date Expiration Date Visits Re quested Visits Authorized [id number] Closed 02/01/2024 03/02/2025 1 1 Encounter Details Date Type Department Care Team (Latest Contact Info) Description 08/13/2024 9:30 AM CDT Ancillary Procedure Arrhythmia Center [address], [place] [id number] Dilated cardiomyopathy (HCC) (Primary Dx); ICD (implantable cardioverter-defibrill ator), biventricular, in situ Social History Tobacco Use Types Packs/Day Years [...] on file 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 BiV ICD CHECK (IN OFFICE) Patient ID: Ryan Almanza is a 79 y.o. male. This patient received a BiV ICD. They had a routine in office device interrogation on 08/13/24. Device implant indications: Robles nonischemic cardiomyopathy, CHF, LBBB Interrogation of the patient's device demonstrates the following: Presenting EGM: A paced Bi V paced with PVCs @ 60 bpm Underlying rhythm: A sense V sense at 40 bpm Original Device Settings Right Atrium Right Ventricle Left Ventricle Sensitivity (mV) Auto mV Auto mV N/a mV Pacing Outputs 2.0 V @ 0.5 ms 2.0 V @ 0.5 ms 2.25 V @ 0.5 ms Testing Measurements Right Atrium Right Ventricle Left Ventricle Sensitivity (mV) 2.1 mV 9.7 mV Not done mV Impedence (Ohms) 430 ohms 430 ohms 760 ohms Pace Threshold 0.75 V @ 0.5 ms 0.5 V @ 0.5 ms 1.25 V @ 0.5 ms Pacing % 84 % 96 % 96 % HV Lead Impedance N/A 41 ohms N/A Battery Status: 1.6 years to RISHABH, charge time 9 seconds. Episodes last 90 days/Comments: AF [place] 1.5 %, 32 episodes classified as AT/AF with the longest duration 1 day 8 hours and 15 minutes on 07/30/2024. Ventricular rates ranged from the 90s to 115 bpm. No further AF episodes noted. No new ventricular events. NORMAL DEVICE FUNCTION PROGRAMMED MEDICATIONS: Anti-coagulant(s): Aspirin 81 mg, Eliquis 5 mg twice a day Anti-arrhythmic(s): Coreg 28.125 mg twice a day PLAN: 1) Robles BiV ICD evaluation 2) Robles remote transmission scheduled in 3 months. 3) Programming appropriate for device settings Demi Mcgraw RN Todd Cochran III, MD [facility] PROCEDURES Final Result documented in this encounter Visit Diagnoses Diagnosis Dilated cardiomyopathy (HCC)- Primary Other primary cardiomyopathies ICD (implantable cardioverter-defibrillator), biventricular, in situ documented in this encounter Care Teams Powertrain Calibration Engineer Relationship Specialty Start Date End Date Artur Hernandez MD [address] [place] [address] PCP - General 10/30/12 Giuliana Gómez MD [address] [place] [address] Consulting Physician Cardiology 07/08/20 Kenny Chavez MD [address] [facility] [address] [place] [address] Transplant 03/24/24 documented as of this encounter
--- OUTSIDE RECORDS SUMMARY | 2024-08-14 15:40 | XMS_ITS | Encounter Summary ---
Author Organization [facility] Healthcare Address [address] [place] [address] Care Team Providers Care Polyethylene Bag Machine Operator Name Role Phone Artur Hernandez MD Primary Care Provider Giuliana Gómez MD Unavailable [phone] Kenny Chavez MD Unavailable [phone] Reason for Referral * Cardiology (Routine) - Authorized Specialty Diagnoses / Procedures Referred By Contac t Referred To Contact Diagnoses ICD (implantable cardioverter-defibrillator), biventricular, in situ Procedures DEVICE CHECK - IN OFFICE Todd Cochran III, MD [address] [address] Phone: tel: fax: [facility] Referral ID Status Reason Start Date Expiration Date V isits Requested Visits Authorized [id number] Authorized 07/17/2024 08/16/2025 1 1 Encounter Details Date Type Department Care Team (Late st Contact Info) Description 08/13/2024 9:45 AM CDT Office Visit Arrhythmia Center [address] [phone] Todd Cochran III, MD [address] [address] Persistent atrial fibrillation (HCC) (Primary Dx); Chronic systolic congestive heart failure (HCC); Cardiac arrhythmia, unspecified cardiac arrhythmia type; ICD (implantable cardioverter-defibril lator), biventricular, in situ Social History Tobacco Use [...] on file 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 Gender Identity Not on file Sexual Orientation Not on file documented as of this encounter Last Filed Vital Signs Vital Sign Reading Time Taken Comments Blood Pressure 118/74 08/13/2024 9:51 AM CDT Pulse 60 08/13/2024 9:51 AM CDT Temperature - - Respiratory Rate - - Oxygen Saturation - - Inhaled Oxygen Concentration - - Weight 117.5 kg (259 lb) 08/13/2024 9:51 AM CDT Height 188 cm (6' 2 ) 08/13/2024 9:51 AM CDT Body Mass Index 33.25 08/13/2024 9:51 AM CDT documented in this encounter Progress Notes * Todd Cochran III, MD - 08/13/2024 9:45 AM CDT Images from the original note were not included. Established Patient Note- [facility] Arrhythmia Center [facility] Arrhythmia Center [address] [place] [address], [address] [place], [place] [address] This note was dictated with voice-recognition software, and cleaning validation consultant errors may be present. Subjective/Objective Patient ID: Ryan Almanza is a 79 y.o. male Chief Complaint AF I had the pleasure of seeing Ryan Almanza in consultation at [facility] Arrhythmia Center at [facility] for follow-up of AF . As you know, he is a 79 y.o. male with the following arrhythmia-specific history: Atrial fibrillation, persistent History of amiodarone use, now off. S/p PVI, PWI, CTI ablation 10/31/23 On carvedilol, apixaban Nonischemic cardiomyopathy S/p EDUCATIONAL TECHNOLOGY COORDINATOR-D system implantation by Dr. Harp 01/21/19 ([employer]) Valvular heart disease. S/p bioAVR Comorbidities: Hypertension AMOR Diabetes mellitus, type II Mr. Almanza feels generally well. No major changes since last visit. He had 1 episode of atrial fibrillation a few weeks ago which was mostly asymptomatic. It was device detected. 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 No palpitations, syncope or ICD shocks. Past Medical History Past Medical History: Diagnosis Date Atrial fibrillation (HCC) 2019 Cardioverted x2 2018, follows with Dr Harp and ORGANIZATIONAL DEVELOPMENT CONSULTANT Chas Cardiomyopathy, dilated (HCC) 2019 EF 21% at time of AFib presentation CHF (congestive heart failure) ([facility]) Chronic kidney disease (CKD) Cr 2.[address] Hernandez office last week Diabetes mellitus ([facility]) Hyperlipidemia Hypertension Poor historian 12/2018 Sleep apnea Past Surgical History Past Surgical History: Procedure Laterality Date AORTIC VALVE REPLACEMENT 06/2007 opnote describes 27mm porcine CE valve in 32 mm Gelweave Valsalva root graft AORTIC VALVE REPLACEMENT 07/06/2020 CARDIOVERSION 2018 and February CHOLECYSTECTOMY Cholecystectomy HIATAL HERNIA REPAIR Laparoscopic INSERT / REPLACE / REMOVE PACEMAKER 12/2018 Bi V ICD / SJM Medications Current Outpatient Medications: apixaban (ELIQUIS) 5 mg tablet, Take 1 tablet (5 mg total) by mouth 2 (two) times a day, Disp: , Rfl: aspirin 81 mg enteric coated tablet, Take 1 tablet (81 mg total) by mouth nightly, Disp: , Rfl: atorvastatin (LIPITOR) 20 mg tablet, Take 1 tablet (20 mg total) by mouth nightly (Patient taking differently: Take 1 tablet (20 mg total) by mouth nightly Takes 1/2 tab daily), Disp: , Rfl: carvediloL (COREG) 25 mg tablet, Take 1 tablet (25 mg total) by mouth 2 (two) times a day, Disp: 60tablet, Rfl: 11 carvediloL (COREG) 3.125 mg tablet, Take 1 tablet (3.125mg) by mouth with 25 mg tablet twice daily (total 28.125mg), Disp: 180 tablet, Rfl: 3 cholecalciferol (VITAMIN D-3) 1,000 unit capsule, Take 1 capsule (1,000 Units total) by mouth daily, Disp: , Rfl: cyanocobalamin, vitamin B-12, 1,000 mcg/mL kit, Inject as directed every 30 (thirty) days, Disp: , Rfl: folic acid 0.8 mg capsule, daily, Disp: , Rfl: polycarbophil (FIBERCON) 625 mg tablet, Take 1 tablet (625 mg total) by mouth 2 (two) times a day, Disp: , Rfl: sacubitriL-valsartan (ENTRESTO) 49-51 mg tablet, Take 1 tablet by mouth 2 (two) times a day, Disp: 60 tablet, Rfl: 11 Synjardy XR 25-1,000 mg tablet, IR & ER, biphasic 24hr, TAKE 1 TABLET BY MOUTH EVERY DAY *STOP METFORMIN*, Disp: , Rfl: tamsulosin (FLOMAX) 0.4 mg extended release capsule, Take 1 capsule (0.4 mg total) by mouth every evening, Disp: , Rfl: traZODone (DESYREL) 50 mg tablet, TAKE 1-3 TABLETS BY MOUTH EVERY DAY AT BEDTIME NEEDED, Disp: ,Rfl: furosemide (LASIX) 20 mg tablet, Take 1 tablet (20 mg total) by mouth 2 (two) times a week (Patientnot taking: Reported on 08/13/2024), Disp: , Rfl: melatonin 5 mg tablet, Take 1 tablet (5 mg total) by mouth daily (Patient not taking: Reported on 08/13/2024), Disp: , Rfl: metFORMIN (FORTAMET) 1,000 mg 24 hr tablet, Take 1 tablet (1,000 mg total) by mouth 2 (two) times aday with meals (Patient not taking: Reported on 08/13/2024), Disp: , Rfl: potassium chloride ER (KLOR-CON) 10 mEq CR tablet, Take 1 tablet/capsule (10 mEq total) by mouth Twice weekly (Patient not taking: Reported on 08/13/2024), Disp: , Rfl: Allergies Allergies Allergen Reactions Spironolactone Other (See comments) did not have allergic reaction but threw lab work off. pt cant tolerate it. Family History Family History Problem Relation Age of Onset Heart failure Father Congestive Heart Failure; Social History Social History Tobacco Use Smoking status: Never Smokeless tobacco: Never Substance and Sexual Activity Drug use: No Sexual activity: Defer Alcohol Use: Not At Risk (10/31/2023) AUDIT-C Frequency of Alcohol Consumption: Monthly or less Average Number of Drinks: 1 or 2 Frequency of Binge Drinking: Never Review of Systems Constitutional: Negative for new fatigue or malaise. Respiratory: Negative for worsening dyspnea or cough. Cardiovascular: Negative chest pain, palpitations, syncope. Objective Vitals: 08/13/24 0951 BP: 118/74 Pulse: 60 Weight: 117.5 kg (259 lb) Height: 188 cm (6' 2 ) General: No acute distress. Pulmonary: Clear to auscultation bilaterally. Cardiovascular: Regular rate/rhythm. No murmurs/rubs. No JVD or lower extremity edema. Diagnostic Data ECG performed today and reviewed personally reveals sinus rhythm with biventricular pacing..PDICTATION Labs Creatinine Date Value Ref Range Status 03/01/2024 1.49 (H) 0.70 - 1.28 mg/dL Final , Plt Date Value Ref Range Status 10/31/2023 168 150 - 400 K/cumm Final , WBC Date Value Ref Range Status 10/31/2023 7.2 3.8 - 9.9 K/cumm Final , Total Hb, POC Date Value Ref Range Status 07/06/2020 9.6 (L) 13.0 - 17.5 g/dL Final Hgb Date Value Ref Range Status 10/31/2023 15.2 13.0 - 17.5 g/dL Final TTE 03/05/24 reviewed. LVEF 60-65%. Impression and Plan Diagnoses and all orders for this visit: Persistent atrial fibrillation (HCC) (Primary) Assessment & Plan: Chronic, stable. Generally feeling well post-ablation. Low arrhythmia burden, minimally symptomatic. --Continue carvedilol 25 mg BID --Continue apixaban 5 mg BID Chronic systolic congestive heart failure (HCC) Assessment & Plan: Chronic, stable. S/p EDUCATIONAL TECHNOLOGY COORDINATOR-D system implantation. Device interrogated personally today, excellent function. --Continue remote monitoring Cardiac arrhythmia, unspecified cardiac arrhythmia type - ECG 12 lead ICD (implantable cardioverter-defibrillator), biventricular, in situ - DEVICE CHECK - IN OFFICE; Future F/u 1 year It was my pleasure to see Ryan Almanza today in the office. Please do not hesitate to contact me with any questions or concerns regarding care. Sincerely, Todd Cochran III, M.D. Cardiac Electrophysiology [facility] Arrhythmia Center [facility] documented in this encounter Miscellaneous Notes * Assessment & Plan Note - Todd Cochran III, MD - 08/13/2024 9:49 AM CDTAssociated Problem(s): Persistent atrial fibrillation (HCC) Chronic, stable. Generally feeling well post-ablation. Low arrhythmia burden, minimally symptomatic. --Continue carvedilol 25 mg BID --Continue apixaban 5 mg BID * Assessment & Plan Note - Todd Cochran III, MD - 08/13/2024 9:49 AM CDTAssociated Problem(s): Chronic systolic congestive heart failure (HCC) Chronic, stable. S/p EDUCATIONAL TECHNOLOGY COORDINATOR-D system implantation. Device interrogated personally today, excellent function. --Continue remote monitoring documented in this encounter Plan of Treatment Scheduled Orders Name Type Priority Associated Diagnoses Orde r Schedule DEVICE CHECK - IN OFFICE Cardiac Services Routine ICD (implantable cardioverter-defibrill ator), biventricular, in situ Expected: 07/17/2024, Expires: 01/17/2026 documented as of this encounter Procedures Procedure Name Priority Date/Time Associated Diagnosis Comments ECG 12-LEAD Routine 08/13/2024 9:53 AM CDT Cardiac arrhythmia, unspecified cardiac arrhythmia type documented in this encounter Results * ECG 12 lead (08/13/2024 9:53 AM CDT) Todd Cochran III, MD ECG ORDERABLES Fin al Result documented in this encounter Visit Diagnoses Diagnosis Persistent atrial fibrillation (HCC)- Primary Atrial fibrillation Chronic systolic congestive heart failure (HCC) Cardiac arrhythmia, unspecified cardiac arrhythmia type ICD (implantable cardioverter-defibrillator), biventricular, in situ documented in this encounter Discontinued Medications Medication Sig Discontinue Reason Start Date End Da te empagliflozin (JARDIANCE) 25 mg tabletIndications:heart failure with reduced ejection fraction,type 2 diabetes mellitus Take 1 tablet (25 mg total) by mouth daily Alternate therapy 08/13/2024 documented as of this encounter Historical Medications * This list may reflect changes made after this encounter. traZODone (DESYREL) 50 mg tablet TAKE 1-3 TABLETS BY MOUTH EVERY DAY AT BEDTIME NEEDED 07/10/2024 Synjardy XR 25-1,000 mg tablet, IR & ER, biphasic 24hr TAKE 1 TABLET BY MOUTH EVERY DAY *STOP METFORMIN* 05/27/2024 added in this encounter Care Teams Polyethylene Bag Machine Operator Relationship Specialty Start Date End Date Artur Hernandez MD [address] [place] [address] PCP - General 10/30/12 Giuliana Gómez MD [address] [facility] [address] [place] [address] Consulting Physician Cardiology 07/08/20 Kenny Chavez MD [address] [place] [address] Transplant 03/24/24 documented as of this encounter
--- OUTSIDE RECORDS SUMMARY | 2024-08-14 15:40 | XMS_ITS | Encounter Summary ---
Author Organization [facility] Healthcare Address [address] [place] [address] Care Team Providers Care Occupational Therapy Department Chair Name Role Phone Artur Hernandez MD Primary Care Provider [phone] Miscellaneous, Not In File Unavailable Unava ilable Giuliana Gómez MD Unavailable Kenny Chavez MD Unavailable [phone] Encounter Details Date Type Department Care Team (Late st Contact Info) Description 06/19/2017 Telephone [facility] OP Cardiac Testing [address] [facility] [address] [place] [address] Dulce Watkins Social History Tobacco Use Types Packs/Day Years Used Date Smoking Tobacco: Never Smokeless Tobacco: Never Alcohol Use Standard Drinks/Week Comments Yes 0 (1 standard drink = 0.6 oz pur e alcohol) Sex and Gender Information Value Date Recorded Sex Assigned at Not on file Legal Sex Male 7:32 PM RN CLINICAL Gender Identity Not on file Sexual Orientation Not on file documented as of this encounter Plan of Treatment Not on file documented as of this encounter Visit Diagnoses Not on filedocumented in this encounter Care Teams Occupational Therapy Department Chair Relationship Specialty Start Date End Date Artur Hernandez MD [address] [place] [address] PCP - General 10/30/12 Miscellaneous, Not In File 07/01/1903/04 Giuliana Gómez MD [address] [facility] [address] [place] [address] Consulting Physician Cardiology 07/08/20 Kenny Chavez MD [address] [facility] [address] [place] [address] Transplant 03/24/24 documented as of this encounter
--- OUTSIDE RECORDS SUMMARY | 2024-08-14 15:40 | XMS_ITS | Clinical Summary ---
Author Organization [facility] Address [address] [place] [address] Phone Care Team Providers Care Top Printing Press Operator Name Role Phone Artur Hernandez MD Primary Care Provider [phone] Allergies Active Allergy Reactions Criticality Noted Date Comments Spironolactone Other (see comments) Low 07/11/2020 did not have allergic reaction but threw lab work off. pt cant tolerate it. Medications Eliquis 5 MG tablet Take 5 mg by mouth 2 (two) times a day 05/28/2020 Active aspirin EC 81 MG EC tablet Take 81 mg by mouth daily Active atorvastatin (LIPITOR) 20 MG tablet 06/12/2020 Active metFORMIN (GLUCOPHAGE) 1000 MG tablet Take 1,000 mg by mouth 2 (two) times a day with meals 04/06/2020 Active tamsulosin (FLOMAX) 0.4 MG 24 hr capsule 06/12/2020 Activ e amiodarone (PACERONE) 200 MG tablet Take 200 [...] Active Entresto 24-26 MG per tablet 04/26/2021 Activ e Jardiance 25 MG tablet 04/13/2021 Active cyanocobalamin (VITAMIN B-12) 1000 MCG/ML injection 02/28/2021 [...] with good control. No changes made. Immunizations Immunization Administration Dates Next Due Influenza TIV (IM) [...] at Not on file Legal Sex Male 1:02 PM MST Gender Identity Not on file Sexual Orientation [...] Medium Risk (1 of 4 - PCV) 1997 Influenza Vaccine (Season Ended) 2024 03/08/20 21, 01/23/[address] [facility] Care Teams Top Printing Press Operator Relationship Specialty Start Date End Date Artur Hernandez MD [address] [place] [address] PCP - General Internal Medicine 06/09/20
--- OUTSIDE RECORDS SUMMARY | 2024-08-14 15:40 | XMS_ITS | Clinical Summary ---
Author Organization [facility] Address [address] [place] [address] Phone Care Team Providers Care Electrician Manager Name Role Phone Unavailable Primary Care Provider [...]
--- OUTSIDE RECORDS SUMMARY | 2024-08-14 15:41 | XMS_ITS | Clinical Summary ---
Author Organization [facility] D Address [address] [place] [phone] Care Team Providers Care Industrial Controller Name Role Phone Artur Hernandez MD Primary Care Provider [phone] Giuliana Gómez MD Unavailable [phone] Kenny Chavez MD Unavailable Allergies Active Allergy Reactions Criticality Noted Date [...] (KLOR-CON) 10 mEq CR tablet Take 1 tablet/capsu le (10 mEq total) by mouth Twice weekly 1 Active furosemide (LASIX) 20 mg tablet Take 1 tablet (20 mg total) by mouth 2 (two) times a week 2 Active carvediloL (COREG) 25 mg tabletIndications :Automatic implantable cardiac defibrillator in situ,Chronic systolic congestive heart failure (HCC) Take 1 tablet (25 mg total) by mouth 2 (two) times a day 60 tablet 11 4 09/19/19 25 Active melatonin 5 mg tablet Take 1 tablet (5 mg total) by mouth daily Active carvediloL (COREG) 3.125 mg tablet Take 1 tablet (3.125mg) by mouth with 25 mg tablet twice daily (total 28.125mg) 180 tablet 3 4 Active sacubitriL-valsar carrillo (ENTRESTO) 49-51 mg tabletIndications :chronic heart failure Take 1 tablet by mouth 2 (two) times a day 60 tablet 11 5 07/03/19 26 Active Synjardy XR 25-1,000 mg tablet, IR & ER, biphasic 24hr TAKE 1 TABLET BY MOUTH EVERY DAY *STOP METFORMIN* 5 Active traZODone (DESYREL) 50 mg tablet TAKE 1-3 TABLETS BY MOUTH EVERY DAY AT BEDTIME NEEDED 5 Active empagliflozin (JARDIANCE) 25 mg tabletIndications :heart failure with reduced ejection fraction,type 2 diabetes mellitus Take 1 tablet (25 mg total) by mouth daily 08/14/19 25 Discontin ued(Alter edin therapy) Active Problems Problem Noted Date Diagnosed Date S/P ablation of atrial fibrillation 12/22/2023 Anticoagulation management encounter 06/21/2023 Assessment & Plan (06/21/2023 2:56 PM CERTIFIED ADDICTION COUNSELOR): -remains compliant on Eliquis -denies any issues with bruising or bleeding -recommend continued therapy for thromboprophylaxis Aftercare following surgery 08/11/2020 Aortic valve disease 08/06/2020 Assessment & Plan (03/11/2021 11:09 AM CERTIFIED ADDICTION COUNSELOR): Bioprosthetic aortic valve is functioning normally. Assessment [...] (07/02/2020): Added automatically from request for surgery [id number] Aortic valve insufficiency 06/09/2020 Chronic systolic congestive heart failure 2019 Assessment & Plan (08/13/2024 9:49 AM CDT): Chronic, stable. S/p SANITARIAN INSPECTOR-D system implantation. Device interrogated personally today, excellent function. --Continue remote monitoring Assessment & Plan (02/07/2024 11:27 AM CDT): Chronic, stable. S/p SANITARIAN INSPECTOR-D system implantation. Excellent device function by interrogation today. BiV pacing percentage 87% without a clear explanation. Reported PVC% is 1%. No PVCs in office today. --Continue remote device monitoring Assessment & Plan (03/11/2021 11:09 AM CERTIFIED ADDICTION COUNSELOR): Congestive heart failure appears to be well [...] for NICM/CHF/LBBB. Loyd Whittington Assessment & Plan (07/07/2024 8:32 PM CDT): Followed by Device [facility]. Assessment & Plan (03/10/2024 8:28 PM CERTIFIED ADDICTION COUNSELOR): Followed by the Device Clinic. Assessment & Plan (06/21/2023 3:01 PM CERTIFIED ADDICTION COUNSELOR): -status post bi V ICD placement (2018) [...] needed. Assessment & Plan (06/01/2020 10:41 AM CERTIFIED ADDICTION COUNSELOR): Followed by Dr. Harp, with normal function when last assessed. Assessment & Plan (05/03/2019 5:32 PM CERTIFIED ADDICTION COUNSELOR): Paced QRS complex is wide. This may not result in improvement in his cardiomyopathy. Will communicate with Dr. Harp. Assessment & Plan (04/02/2019 10:40 AM CERTIFIED ADDICTION COUNSELOR): To be interrogated today. Dilated cardiomyopathy 12/19/2018 Assessment & Plan (07/07/2024 8:30 PM CDT): Mr. Almanza endorses NYHA Class II heart failure symptoms. He is euvolemic on exam and tolerating medical therapy. I have asked him to continue current medications and to return for follow up in [address] Chavez. Assessment & Plan (03/10/2024 8:22 PM CERTIFIED ADDICTION COUNSELOR): Mr. Almanza endorses NYHA Class II heart failure symptoms. He is euvolemic on exam and tolerating GDMT including Entresto, Jardiancem, and Carvedilol. I have made no changes to his regimen today and have asked him to follow up in 3 months. Assessment & Plan (09/27/2023 1:14 PM CDT): S/p SANITARIAN INSPECTOR-D system implantation. Inadequate SANITARIAN INSPECTOR delivery due to rapid AF. --AF ablation as above --Repeat TTE to reassess LV function Assessment & Plan (03/11/2021 11:11 AM CERTIFIED ADDICTION COUNSELOR): Echo shows marked worsening compared with that [...] month. Assessment & Plan (06/01/2020 10:39 AM CERTIFIED ADDICTION COUNSELOR): Ejection fraction has normalized with medications, maintenance [...] below. Assessment & Plan (06/21/2019 10:31 AM CERTIFIED ADDICTION COUNSELOR): He is minimally symptomatic, which has been [...] Chavez. Assessment & Plan (05/24/2019 10:13 AM CERTIFIED ADDICTION COUNSELOR): Tolerating carvedilol. Increased dosage to 12.5 mg b.i.d. and return in three weeks for an increase to 25 mg b.i.d.. Will plan to reassess EF once he has been on this dosage for 2-3 months. He remains minimally symptomatic. Assessment & Plan (05/03/2019 5:27 PM CERTIFIED ADDICTION COUNSELOR): Reviewed again that it is great that [...] wrong). Assessment & Plan (04/02/2019 10:40 AM CERTIFIED ADDICTION COUNSELOR): Still with severe dilated cardiomyopathy, ejection fraction [...] ejection fraction does not improve significantly with zoroastrian of sinus rhythm, would consider cardiac resynchronization therapy. LBBB (left bundle branch block) 12/19/2018 Assessment & Plan (08/06/2020 8:14 AM CDT): Status post Bi V ICD. Assessment & Plan (11/25/2019 10:09 AM CDT): This likely contributed to his cardiomyopathy and he is now biventricular paced. Assessment & Plan (06/21/2019 10:35 AM CERTIFIED ADDICTION COUNSELOR): Received Bi V ICD on 01/11/2019. Echocardiogram three months later showed an EF of 31%, on improved. Assessment & Plan (05/03/2019 5:32 PM CERTIFIED ADDICTION COUNSELOR): This may have contributed to his cardiomyopathy. Unfortunately, he is maintaining a wide complex paced rhythm despite biventricular pacing. Assessment & Plan (04/02/2019 10:39 AM CERTIFIED ADDICTION COUNSELOR): Status post biventricular device. Assessment & Plan [...] demonstrated on an echocardiogram in March 2018. Persistent atrial fibrillation 12/18/2018 Assessment & Plan (08/13/2024 10:03 AM CDT): Chronic, stable. Generally feeling well post-ablation. Low arrhythmia burden, minimally symptomatic. --Continue carvedilol 25 mg BID --Continue apixaban 5 mg BID Assessment & Plan (07/07/2024 8:31 PM CDT): Remains on anticoagulation. Carvedilol dose increased to 28.125 mg BID per EP. Assessment & Plan (03/10/2024 8:28 PM CERTIFIED ADDICTION COUNSELOR): Remains on Eliquis. Beta radha dose increased by EP for increased AF burden. Assessment & Plan (02/07/2024 11:27 AM CDT): Chronic, stable. Doing well post-AF ablation without recurrence. --Continue apixaban 5 mg BID --Continue carvedilol 25 mg BID Assessment & Plan (09/27/2023 1:13 PM CDT): Probably symptomatic, with fatigue/ effort intolerance. Occurring in context of NICM and LBBB s/p SANITARIAN INSPECTOR-D system implantation. AF now interfering with adequate delivery of SANITARIAN INSPECTOR despite maximum dose BB therapy. Significant risk [...] his advanced age, cardiomyopathy and presence of SANITARIAN INSPECTOR system. I reviewed the concept that patients [...] w/anesthesia --DANNY on table prior to procedure --[employer] device litigation claim representative to be available for programming periprocedurally --Continue apixaban 5 mg BID. Hold starting the evening prior to procedure. --Continue carvedilol 25 mg BID Pt will follow-up 1 month post-ablation in the AF clinic with a nurse practitioner. Follow-up with me 3 months post-ablation. Assessment & Plan (06/21/2023 3:42 PM CERTIFIED ADDICTION COUNSELOR): -atrial fibrillation noted upon device interrogation today, [...] re-evaluate Assessment & Plan (03/11/2021 11:11 AM CERTIFIED ADDICTION COUNSELOR): By device interrogation he is maintaining sinus rhythm on low-dose amiodarone. He is also on Eliquis 5 mg b.i.d.. Assessment & Plan (11/05/2020 10:22 AM CDT): Follows with EP. He remains on amiodarone and Eliquis. Assessment & Plan (08/06/2020 8:12 AM CDT): In sinus rhythm on amiodarone. He follows with Dr. Harp for his heart rhythm. Assessment & Plan (06/01/2020 10:41 AM CERTIFIED ADDICTION COUNSELOR): Most recent device interrogation showed no atrial [...] anticoagulation. Assessment & Plan (06/21/2019 10:35 AM CERTIFIED ADDICTION COUNSELOR): Device remote through 05/21/2019 showed that he was still in atrial fibrillation. He is scheduled for cardioversion with Dr. Harp in early June. Will message device staff to check and make sure that he is still in atrial fibrillation. Assessment & Plan (05/24/2019 10:14 AM CERTIFIED ADDICTION COUNSELOR): On amiodarone. Seeing EP. Cardioversion planned for June. Assessment & Plan (05/03/2019 5:32 PM CERTIFIED ADDICTION COUNSELOR): Anticoagulated. Plan for cardioversion in two months. Assessment & Plan (04/02/2019 10:39 AM CERTIFIED ADDICTION COUNSELOR): He is on amiodarone and Eliquis. He [...] explained to him and his that with zoroastrian of sinus rhythm it is possible that his heart rate will be slow, and a pacemaker could be necessary. I did discuss his case informally with Dr. Harp, who agrees with cardioversion at this point given his LV dysfunction. H/O aortic valve replacement with tissue graft 1 05/29/2016 Assessment & Plan (03/10/2024 8:29 PM CERTIFIED ADDICTION COUNSELOR): Normal function on echo earlier this year. Assessment & Plan (06/01/2020 10:43 AM CERTIFIED ADDICTION COUNSELOR): He has an aortic insufficiency murmur today [...] function. Assessment & Plan (06/21/2019 10:36 AM CERTIFIED ADDICTION COUNSELOR): Bioprosthetic aortic valve is functioning normally. Assessment & Plan (05/03/2019 5:29 PM CERTIFIED ADDICTION COUNSELOR): Functioning normally. Assessment & Plan (04/02/2019 10:39 AM CERTIFIED ADDICTION COUNSELOR): Aortic valve is functioning normally. Assessment & Plan (01/04/2019 3:42 PM CDT): Aortic valve is functioning normally. Assessment & Plan (12/19/2018 4:29 PM CDT): Aortic valve is functioning normally. Assessment & Plan (03/27/2018 11:11 AM CERTIFIED ADDICTION COUNSELOR): Mild transvalvular gradient, without significant change since 2016. We discussed the potential for valve in valve TAVR when/if this valve fails. Assessment & Plan (03/28/2017 11:23 AM CERTIFIED ADDICTION COUNSELOR): No symptoms of aortic stenosis, and valve was functioning well on last year's echo. His exam today does not suggest that this is changed significantly. Will obtain an echo in one year, two years from his last one. H/O aortic root repair 03/28/2017 Assessment & Plan (03/28/2017 11:22 AM CERTIFIED ADDICTION COUNSELOR): He has not had a recent chest CT. Will order. His last one was done without contrast which made measurements difficult. Essential hypertension 03/28/2017 Assessment & Plan (03/11/2021 11:11 AM CERTIFIED ADDICTION COUNSELOR): Blood pressure is controlled on current regimen. Assessment & Plan (11/05/2020 10:23 AM CDT): Blood pressure is adequately controlled on current regimen. No change was made. Assessment & Plan (08/06/2020 8:12 AM CDT): Blood pressure is adequately controlled on current regimen. No change was made. Assessment & Plan (06/01/2020 10:40 AM CERTIFIED ADDICTION COUNSELOR): Blood pressure is adequately controlled on current [...] Diovan. Assessment & Plan (06/21/2019 10:32 AM CERTIFIED ADDICTION COUNSELOR): Blood pressure is too high. If it does not normalize with increased carvedilol, valsartan should be increased. Assessment & Plan (05/24/2019 10:13 AM CERTIFIED ADDICTION COUNSELOR): Blood pressure is not controlled. Hopefully increasing carvedilol will help. I am reluctant to switch to Entresto prior to his blood pressure being controlled as that would necessitate him being off lisinopril for a day. Will continue to keep this in mind as an option once his blood pressure is better. Assessment & Plan (05/03/2019 5:29 PM CERTIFIED ADDICTION COUNSELOR): Blood pressure is too high, but was 118/70 on 04/30/2019 when he saw his PCP. Will increase carvedilol. Assessment & Plan (04/02/2019 10:39 AM CERTIFIED ADDICTION COUNSELOR): Diastolic blood pressure is a bit high, and hopefully will improve with carvedilol. Assessment & Plan (01/04/2019 3:44 PM CDT): Blood pressure is adequately controlled on current regimen. No change was made. Assessment & Plan (12/19/2018 4:31 PM CDT): Blood pressure is adequately controlled on current regimen. No change was made. Assessment & Plan (03/27/2018 11:11 AM CERTIFIED ADDICTION COUNSELOR): Blood pressure is adequately controlled on current regimen. No change was made. Assessment & Plan (03/28/2017 11:22 AM CERTIFIED ADDICTION COUNSELOR): Blood pressure is adequately controlled on current regimen. No change was made. Hyperlipidemia 03/28/2017 Assessment & Plan (11/05/2020 10:23 AM CDT): On chronic lipid lowering therapy with good control. No changes made. Assessment & Plan (11/25/2019 10:11 AM CDT): On chronic lipid lowering therapy with good control. No changes made. Assessment & Plan (05/03/2019 5:32 PM CERTIFIED ADDICTION COUNSELOR): On chronic lipid lowering therapy with good control. No changes made. Assessment & Plan (04/02/2019 10:39 AM CERTIFIED ADDICTION COUNSELOR): On chronic lipid lowering therapy with good control. No changes made. Assessment & Plan (01/04/2019 3:42 PM CDT): On chronic lipid lowering therapy with good control. No changes made. Assessment & Plan (12/19/2018 4:32 PM CDT): On chronic lipid lowering therapy with good control. No changes made. Assessment & Plan (03/27/2018 11:12 AM CERTIFIED ADDICTION COUNSELOR): On chronic lipid lowering therapy with good control. No changes made. Assessment & Plan (03/28/2017 11:22 AM CERTIFIED ADDICTION COUNSELOR): On chronic lipid lowering therapy with good control. No changes made. Sick sinus syndrome 03/28/2017 Assessment & Plan (03/27/2018 11:11 AM CERTIFIED ADDICTION COUNSELOR): Mild and asymptomatic Assessment & Plan (03/28/2017 11:22 AM CERTIFIED ADDICTION COUNSELOR): Asymptomatic. Continue to monitor. Encounters Date Type Department Care Team Description 08/13/2024 9:45 AM CDT Office Visit [facility] [phone] Todd Cochran III, MD Persistent atrial fibrillation (HCC) (Primary Dx); Chronic systolic congestive heart failure (HCC); Cardiac arrhythmia, unspecified cardiac arrhythmia type; ICD (implantable cardioverter-defibrill ator), biventricular, in situ 08/13/2024 9:30 AM CDT Ancillary Procedure [facility] [address] [place] [address] [address], [place] [phone] Dilated cardiomyopathy (HCC) (Primary Dx); ICD (implantable cardioverter-defibrill ator), biventricular, in situ 08/02/2024 Orders Only [facility] [address] [place] [phone] Todd Cochrna III, MD 07/31/2024 Telephone [facility] [address] [place] [phone] Todd Cochran III, MD Pk Alert: AF [place] 07/31/2024 Orders Only [facility] [address] [place] [phone] Todd Cochran III, MD 07/02/2024 10:30 AM CDT Office Visit [facility] [address] [facility] [address] [place] [phone] Chanelle Escamilla NP Dilated cardiomyopathy (HCC) (Primary Dx); Paroxysmal atrial fibrillation (HCC); ICD (implantable cardioverter-defibrill ator), biventricular, in situ 07/01/2024 1:00 PM CDT Ancillary Procedure [facility] [address] [place] [phone] ICD (implantable cardioverter-defibrill ator), biventricular, in situ (Primary Dx); NICM (nonischemic cardiomyopathy) (HCC) from Last 3 Months Surgical History Surgery [...] Comments Hypertension Hyperlipidemia Sleep apnea Diabetes mellitus (HCC) Poor historian 12/2018 CHF (congestive heart failure) (HCC) Cardiomyopathy, dilated (HCC) 2018 EF 21% at time of AFib presentation Atrial fibrillation (HCC) 2019 Cardio verted x2 2019, follows with Dr Harp and [...] on file Legal Sex Male 7:32 PM CERTIFIED ADDICTION COUNSELOR Gender Identity Not on file Sexual Orientation Not on file Obstetrics History Last Filed Vital Signs Vital Sign Reading Time Taken Comments Blood Pressure 118/74 08/13/2024 9:51 AM CDT Pulse 60 08/13/2024 9:51 AM CDT Temperature 36.4 C (97.6 F) 10/31/2023 1:55 PM CDT Respiratory Rate 16 03/05/2024 11:13 AM CERTIFIED ADDICTION COUNSELOR Oxygen Saturation 97% 07/02/2024 10:32 AM CDT Inhaled Oxygen Concentration - - Weight 117.5 kg (259 lb) 08/13/2024 9:51 AM CDT Height 188 cm (6' 2 ) 08/13/2024 9:51 AM CDT Body Mass Index 33.25 08/13/2024 9:51 AM CDT Plan of Treatment Health Maintenance Due Date Last Done Comments Depression Screening 1945 Hepatitis C Screening 1945 DTaP/Tdap/Td Vaccine (1 - Tdap) 1958 Hepatitis B Screening 1965 Well Visit 65+ 2012 Pneumococcal vaccine 65+ (2 of 2 - PPSV23) 08/17/2021 06/22/2021 Covid-19 Vaccine (3 - 2023-2 5 season) 2023 07/13/2020, 06/11/2020 Fall Risk Assessment 10/30/2024 10/31/2023 Influenza Vaccine (Season Ended) 2024 03/08/2021, 01/23/2020, 12/24/2019, Additional history exists Zoster Vaccine Completed 03/26/2020, 12/24/2019 Medical Devices Implanted Type Area Racing Board Marker Device Identifier Shelf Expiration Date Model / Serial / Lot [employer] Vascade Mvp 6-12fr Venous Closure [id number] - [id number] - [id number] Implanted:Qty: 1 on 10/31/2023 by Todd Cochran III, MD at [facility] Collagen [employer] 03/24/2025 800-612C -10U / [id number] / [id number] [employer] Vascade Mvp 6-12fr Venous Closure [id number] - [id number] - [id number] Implanted:Qty: 1 on 10/31/2023 by Todd Cochran III, MD at [facility] Collagen [employer] 07/12/2025 800-612C -10U / [id number] / [id number] [employer] Vascade Mvp 6-12fr Venous Closure [id number] - [id number] - [id number] Implanted:Qty: 1 on 10/31/2023 by Todd Cochran III, MD at [facility] Collagen [employer] 07/12/2025 800-612C -10U / [id number] / [id number] [employer] [id number] Quadra Assura Mp [id number] Df-4 Is4 Is-1 Connector [id number] - [id number] - [id number] Implanted:Qty: 1 on 01/21/2019 by Joe Harp MD at [facility] ICD Left: Chest [employer] [id number] 12/22/2020 [id number] / [id number] / [employer] 7121q/65 Durata Sj4 7fr 65cm 2 Coil True Bipolar Cardioverter - [id number] - [id number] Implanted:Qty: 1 on 01/21/2019 by Joe Harp MD at [facility] Lead Left: Chest [employer] [id number] 07/22/2020 7121Q/65 / [id number] / [employer] 2088tc/52 Tendril Sts 6fr 52cm Is-1 Connector Active Fixation Bipolar Soft - [id number] - [id number] Implanted:Qty: 1 on 01/21/2019 by Joe Harp MD at [facility] Lead Left: Chest [employer] [id number] 12/22/2021 2088TC/5 2 / [id number] / [employer] 1456q/86 Quartet 4.7fr 86cm Quadripolar Is-4 Llll Connector 8 Curve Low - [id number] - [id number] Implanted:Qty: 1 on 01/21/2019 by Joe Harp MD at [facility] Lead Left: Chest [employer] [id number] 11/21/2021 1456Q/86 / [id number] / [employer] [id number] Vascade 6/7fr Bioabsorbable Vascular System Compression Collagen - S0 - [id number] Implanted:Qty: 1 on 07/02/2020 by Amari Burgess MD at [facility] Other - see comments [employer] 02/09/2022 [id number] -[id number] / 0 / [id number] Description:Right Femoral ve inous closure device [employer] [facility] [id number] [place] rds Perimount Magna Ease 27mm Bioprosthesis - [id number] - [id number] Implanted:Qty: 1 on 07/06/2020 by Darvin Hernandez MD at [facility] Prosthetic Valve N/A: Aortic Valve [employer] 01/30/2023 [id number] [id number] / [id number] / [id number] Procedures Procedure Name Priority Date/Time Associated Diagnosis Comments ECG 12-LEAD Routine 08/13/2024 9:53 AM CDT Cardiac arrhythmia, unspecified cardiac arrhythmia type DEVICE CHECK - IN OFFICE Routine 08/13/2024 9:23 AM CDT ICD (implantable cardioverter-defibri llator), biventricular, in situ DEVICE CHECK - REMOTE Routine 08/02/2024 9:46 AM CDT DEVICE CHECK - REMOTE Routine 07/31/2024 5:20 AM CDT DEVICE CHECK - REMOTE Routine 07/01/2024 10:49 AM CDT NICM (nonischemic cardiomyopathy) (HCC) from Last 3 Months Results * ECG 12 lead (08/13/2024 9:53 AM CDT) Todd Cochran III, MD ECG ORDERABLES Fin al Result * DEVICE CHECK - IN OFFICE (08/13/2024 9:23 AM CDT) Anatomical Region Laterality Modality Other Narrative 08/14/2024 12:58 PM CDT Table formatting from the original result was not included. BiV ICD CHECK (IN OFFICE) Patient ID: Eulalio Almanza is a 79 [...] 9 seconds. Episodes last 90 days/Comments: AF Manteca 1.5 %, 32 episodes classified as AT/AF [...] MD [facility] PROCEDURES Final Result * DEVICE CHECK - REMOTE (08/02/2024 9:46 AM CDT) Anatomical Region Laterality Modality Other 08/02/2024 9:46 AM CDT Narrative 08/12/2024 11:29 AM CDT Refer to Epic phone encounter. REJI Green Device Specialist Todd Cochran III, MD CV CARDIAC SERVICES PROCEDURES Final Result * DEVICE CHECK - REMOTE (07/31/2024 5:20 AM CDT) Anatomical Region Laterality Modality Other 07/31/2024 5:20 AM CDT Narrative 08/12/2024 11:23 AM CDT Refer to Epic phone encounter. REJI Green Device Specialist Todd Cochran III, MD CV CARDIAC SERVICES PROCEDURES Final Result * DEVICE CHECK - REMOTE (07/01/2024 10:49 AM CDT) Anatomical Region Laterality Modality Other Narrative 07/16/2024 10:41 PM CDT Table formatting from the original result was not included. BiV ICD CHECK (REMOTE) Patient ID: Eulalio Almanza is a 79 y.o. male. This patient received a Robles BiV ICD. They had a routine remote transmission on 07/01/2024 Device implant indications: Nonischemic cardiomyopathy, CHF, LBBB [...] Ventricle Left Ventricle Sensitivity (mV) 2.1 mV 8.6 mV Not done mV Impedence (Ohms) 410 ohms 430 ohms 710 ohms Pace Threshold Not done V @ ms 0.625 V @ 0.5 ms 1.25 V @ 0.5 ms Pacing % 84 % 95 % 95 % HV Lead Impedance N/A 44 ohms N/A Battery Status: 1.5 years to RISHABH, charge time 8.9 seconds. Episodes last 90 days/Comments: AF Manteca 1 %,longest duration 3 hours on 06/23. Max ventricular rates in the low 100s. No new ventricular events NORMAL DEVICE FUNCTION PROGRAMMED MEDICATIONS: Anti-coagulant(s): Aspirin 81 mg, Eliquis 5 mg twice a day Anti-arrhythmic(s): Coreg 28.25 mg twice a day PLAN: 1) Robles BiV ICD evaluation 2) Robles remote transmission scheduled in 3 months. 3) Programming appropriate for device settings Demi Mcgraw RN Todd Cochran III, MD [facility] C[facility] PROCEDURES Final Result from Last 3 Months Insurance MEDICARE [facility] MEDICARE [facility] MEDICARE SUPPLEMENT MEDICARE [facility] MEDICARE MEDICARE [facility] MEDICARE SUPPLEMENT Advance Directives For more information, please contact: [phone] * Full Code (Latest Code Status on File) Date Activated Date Inactivated Comments 07/06/2020 1:57 PM 07/10/2020 3:07 PM * Full Code Date Activated Date Inactivated Comments 07/01/2019 9:07 AM 07/02/2019 4:46 AM * Full Code Date Activated Date Inactivated Comments 03/11/2019 8:57 AM 2019 4:48 AM Care Teams Industrial Controller Relationship Specialty Start Date End Date Artur Hernandez MD [address] [place] [address] PCP - General 10/30/12 Giuliana Gómez MD [address] [place] [address] Consulting Physician Cardiology 07/08/20 Kenny Chavez MD [address] [facility] [address] [place] [address] Transplant 03/24/24
--- OUTSIDE RECORDS SUMMARY | 2024-08-14 15:41 | XMS_ITS | Referral Summary ---
Author Organization [facility] D Address [address] [place] [address] Care Team Providers Care Coal Trammer Name Role Phone Artur Hernandez MD Primary Care Provider Giuliana Gómez MD Unavailable [phone] Kenny Chavez MD Unavailable [phone] Encounters Date Type Department Care Team Description 08/13/2024 9:45 AM CDT Office [facility] [address] [place] [phone] Todd Cochran III, MD Persistent atrial fibrillation (HCC) (Primary Dx); Chronic systolic congestive heart failure (HCC); Cardiac arrhythmia, unspecified cardiac arrhythmia type; ICD (implantable cardioverter-defibrill ator), biventricular, in situ 08/13/2024 9:30 AM CDT Ancillary Procedure [facility] [address] [place] [phone] Dilated cardiomyopathy (HCC) (Primary Dx); ICD (implantable cardioverter-defibrill ator), biventricular, in situ 08/02/2024 Orders Only [facility] [address] [place] [phone] Todd Cochran III, MD 07/31/2024 Telephone [facility] [address] [place] [phone] Todd Cochran III, MD Merlin Alert: AF [place] 07/31/2024 Orders Only [facility] [address] [place] [address] [address], [place] [address] Todd Cochran III, MD 07/02/2024 10:30 AM CDT Office Visit [facility] [address] [facility] [address] [place] [address] Chanelle Escamilla NP Dilated cardiomyopathy (HCC) (Primary Dx); Paroxysmal atrial fibrillation (HCC); ICD (implantable cardioverter-defibrill ator), biventricular, in situ 07/01/2024 1:00 PM CDT Ancillary Procedure [facility] [address] [place] [address], [place] [address] ICD (implantable cardioverter-defibrill ator), biventricular, in situ (Primary Dx); NICM (nonischemic cardiomyopathy) (HCC) from Last 3 Months Allergies Active Allergy [...] 06/21/2023 Assessment & Plan (06/21/2023 2:56 PM AIR TUCKER): -remains compliant on Eliquis -denies any issues with bruising or bleeding -recommend continued therapy for thromboprophylaxis Aftercare following surgery 08/11/2020 Aortic valve disease 08/06/2020 Assessment & Plan (03/11/2021 11:09 AM AIR TUCKER): Bioprosthetic aortic valve is functioning normally. Assessment [...] (07/02/2020): Added automatically from request for surgery [id number] Aortic valve insufficiency 06/09/2020 Chronic systolic congestive heart failure 2019 Assessment & Plan (08/13/2024 9:49 AM CDT): Chronic, stable. S/p CUSTODIAL MANAGER-D system implantation. Device interrogated personally today, excellent function. --Continue remote monitoring Assessment & Plan (02/07/2024 11:27 AM CDT): Chronic, stable. S/p CUSTODIAL MANAGER-D system implantation. Excellent device function by interrogation today. BiV pacing percentage 87% without a clear explanation. Reported PVC% is 1%. No PVCs in office today. --Continue remote device monitoring Assessment & Plan (03/11/2021 11:09 AM AIR TUCKER): Congestive heart failure appears to be well [...] Clinic. Assessment & Plan (03/10/2024 8:28 PM AIR TUCKER): Followed by the Device Clinic. Assessment & Plan (06/21/2023 3:01 PM AIR TUCKER): -status post bi V ICD placement (2018) [...] needed. Assessment & Plan (06/01/2020 10:41 AM AIR TUCKER): Followed by Dr. Harp, with normal function when last assessed. Assessment & Plan (05/03/2019 5:32 PM AIR TUCKER): Paced QRS complex is wide. This may not result in improvement in his cardiomyopathy. Will communicate with Dr. Harp. Assessment & Plan (04/02/2019 10:40 AM AIR TUCKER): To be interrogated today. Dilated cardiomyopathy 12/19/2018 Assessment & Plan (07/07/2024 8:30 PM CDT): Mr. Sutton endorses NYHA Class II heart failure symptoms. He is euvolemic on exam and tolerating medical therapy. I have asked him to continue current medications and to return for follow up in [address] Chavez. Assessment & Plan (03/10/2024 8:22 PM AIR TUCKER): Mr. Sutton endorses NYHA Class II heart failure symptoms. He is euvolemic on exam and tolerating GDMT including Entresto, Jardiancem, and Carvedilol. I have made no changes to his regimen today and have asked him to follow up in 3 months. Assessment & Plan (09/27/2023 1:14 PM CDT): S/p CUSTODIAL MANAGER-D system implantation. Inadequate CUSTODIAL MANAGER delivery due to rapid AF. --AF ablation as above --Repeat TTE to reassess LV function Assessment & Plan (03/11/2021 11:11 AM AIR TUCKER): Echo shows marked worsening compared with that [...] month. Assessment & Plan (06/01/2020 10:39 AM AIR TUCKER): Ejection fraction has normalized with medications, maintenance [...] below. Assessment & Plan (06/21/2019 10:31 AM AIR TUCKER): He is minimally symptomatic, which has been [...] Chavez. Assessment & Plan (05/24/2019 10:13 AM AIR TUCKER): Tolerating carvedilol. Increased dosage to 12.5 mg b.i.d. and return in three weeks for an increase to 25 mg b.i.d.. Will plan to reassess EF once he has been on this dosage for 2-3 months. He remains minimally symptomatic. Assessment & Plan (05/03/2019 5:27 PM AIR TUCKER): Reviewed again that it is great that [...] wrong). Assessment & Plan (04/02/2019 10:40 AM AIR TUCKER): Still with severe dilated cardiomyopathy, ejection fraction [...] paced. Assessment & Plan (06/21/2019 10:35 AM AIR TUCKER): Received Bi V ICD on 01/11/2019. Echocardiogram three months later showed an EF of 31%, on improved. Assessment & Plan (05/03/2019 5:32 PM AIR TUCKER): This may have contributed to his cardiomyopathy. Unfortunately, he is maintaining a wide complex paced rhythm despite biventricular pacing. Assessment & Plan (04/02/2019 10:39 AM AIR TUCKER): Status post biventricular device. Assessment & Plan [...] EP. Assessment & Plan (03/10/2024 8:28 PM AIR TUCKER): Remains on Eliquis. Beta radha dose increased by EP for increased AF burden. Assessment & Plan (02/07/2024 11:27 AM CDT): Chronic, stable. Doing well post-AF ablation without recurrence. --Continue apixaban 5 mg BID --Continue carvedilol 25 mg BID Assessment & Plan (09/27/2023 1:13 PM CDT): Probably symptomatic, with fatigue/ effort intolerance. Occurring in context of NICM and LBBB s/p CUSTODIAL MANAGER-D system implantation. AF now interfering with adequate delivery of CUSTODIAL MANAGER despite maximum dose BB therapy. Significant risk [...] his advanced age, cardiomyopathy and presence of CUSTODIAL MANAGER system. I reviewed the concept that patients [...] w/anesthesia --DANNY on table prior to procedure --[employer] device appliance service representative to be available for programming periprocedurally --Continue apixaban 5 mg BID. Hold starting the evening prior to procedure. --Continue carvedilol 25 mg BID Pt will follow-up 1 month post-ablation in the AF clinic with a nurse practitioner. Follow-up with me 3 months post-ablation. Assessment & Plan (06/21/2023 3:42 PM AIR TUCKER): -atrial fibrillation noted upon device interrogation today, [...] re-evaluate Assessment & Plan (03/11/2021 11:11 AM AIR TUCKER): By device interrogation he is maintaining sinus rhythm on low-dose amiodarone. He is also on Eliquis 5 mg b.i.d.. Assessment & Plan (11/05/2020 10:22 AM CDT): Follows with EP. He remains on amiodarone and Eliquis. Assessment & Plan (08/06/2020 8:12 AM CDT): In sinus rhythm on amiodarone. He follows with Dr. Harp for his heart rhythm. Assessment & Plan (06/01/2020 10:41 AM AIR TUCKER): Most recent device interrogation showed no atrial [...] anticoagulation. Assessment & Plan (06/21/2019 10:35 AM AIR TUCKER): Device remote through 05/21/2019 showed that he was still in atrial fibrillation. He is scheduled for cardioversion with Dr. Harp in early June. Will message device staff to check and make sure that he is still in atrial fibrillation. Assessment & Plan (05/24/2019 10:14 AM AIR TUCKER): On amiodarone. Seeing EP. Cardioversion planned for June. Assessment & Plan (05/03/2019 5:32 PM AIR TUCKER): Anticoagulated. Plan for cardioversion in two months. Assessment & Plan (04/02/2019 10:39 AM AIR TUCKER): He is on amiodarone and Eliquis. He [...] 05/29/2016 Assessment & Plan (03/10/2024 8:29 PM AIR TUCKER): Normal function on echo earlier this year. Assessment & Plan (06/01/2020 10:43 AM AIR TUCKER): He has an aortic insufficiency murmur today [...] function. Assessment & Plan (06/21/2019 10:36 AM AIR TUCKER): Bioprosthetic aortic valve is functioning normally. Assessment & Plan (05/03/2019 5:29 PM AIR TUCKER): Functioning normally. Assessment & Plan (04/02/2019 10:39 AM AIR TUCKER): Aortic valve is functioning normally. Assessment & Plan (01/04/2019 3:42 PM CDT): Aortic valve is functioning normally. Assessment & Plan (12/19/2018 4:29 PM CDT): Aortic valve is functioning normally. Assessment & Plan (03/27/2018 11:11 AM AIR TUCKER): Mild transvalvular gradient, without significant change since 2016. We discussed the potential for valve in valve TAVR when/if this valve fails. Assessment & Plan (03/28/2017 11:23 AM AIR TUCKER): No symptoms of aortic stenosis, and valve was functioning well on last year's echo. His exam today does not suggest that this is changed significantly. Will obtain an echo in one year, two years from his last one. H/O aortic root repair 03/28/2017 Assessment & Plan (03/28/2017 11:22 AM AIR TUCKER): He has not had a recent chest CT. Will order. His last one was done without contrast which made measurements difficult. Essential hypertension 03/28/2017 Assessment & Plan (03/11/2021 11:11 AM AIR TUCKER): Blood pressure is controlled on current regimen. Assessment & Plan (11/05/2020 10:23 AM CDT): Blood pressure is adequately controlled on current regimen. No change was made. Assessment & Plan (08/06/2020 8:12 AM CDT): Blood pressure is adequately controlled on current regimen. No change was made. Assessment & Plan (06/01/2020 10:40 AM AIR TUCKER): Blood pressure is adequately controlled on current [...] Diovan. Assessment & Plan (06/21/2019 10:32 AM AIR TUCKER): Blood pressure is too high. If it does not normalize with increased carvedilol, valsartan should be increased. Assessment & Plan (05/24/2019 10:13 AM AIR TUCKER): Blood pressure is not controlled. Hopefully increasing carvedilol will help. I am reluctant to switch to Entresto prior to his blood pressure being controlled as that would necessitate him being off lisinopril for a day. Will continue to keep this in mind as an option once his blood pressure is better. Assessment & Plan (05/03/2019 5:29 PM AIR TUCKER): Blood pressure is too high, but was 118/70 on 04/30/2019 when he saw his PCP. Will increase carvedilol. Assessment & Plan (04/02/2019 10:39 AM AIR TUCKER): Diastolic blood pressure is a bit high, and hopefully will improve with carvedilol. Assessment & Plan (01/04/2019 3:44 PM CDT): Blood pressure is adequately controlled on current regimen. No change was made. Assessment & Plan (12/19/2018 4:31 PM CDT): Blood pressure is adequately controlled on current regimen. No change was made. Assessment & Plan (03/27/2018 11:11 AM AIR TUCKER): Blood pressure is adequately controlled on current regimen. No change was made. Assessment & Plan (03/28/2017 11:22 AM AIR TUCKER): Blood pressure is adequately controlled on current regimen. No change was made. Hyperlipidemia 03/28/2017 Assessment & Plan (11/05/2020 10:23 AM CDT): On chronic lipid lowering therapy with good control. No changes made. Assessment & Plan (11/25/2019 10:11 AM CDT): On chronic lipid lowering therapy with good control. No changes made. Assessment & Plan (05/03/2019 5:32 PM AIR TUCKER): On chronic lipid lowering therapy with good control. No changes made. Assessment & Plan (04/02/2019 10:39 AM AIR TUCKER): On chronic lipid lowering therapy with good control. No changes made. Assessment & Plan (01/04/2019 3:42 PM CDT): On chronic lipid lowering therapy with good control. No changes made. Assessment & Plan (12/19/2018 4:32 PM CDT): On chronic lipid lowering therapy with good control. No changes made. Assessment & Plan (03/27/2018 11:12 AM AIR TUCKER): On chronic lipid lowering therapy with good control. No changes made. Assessment & Plan (03/28/2017 11:22 AM AIR TUCKER): On chronic lipid lowering therapy with good control. No changes made. Sick sinus syndrome 03/28/2017 Assessment & Plan (03/27/2018 11:11 AM AIR TUCKER): Mild and asymptomatic Assessment & Plan (03/28/2017 11:22 AM AIR TUCKER): Asymptomatic. Continue to monitor. Social History Tobacco [...] on file Legal Sex Male 7:32 PM AIR TUCKER Gender Identity Not on file Sexual Orientation Not on file Last Filed Vital Signs Vital Sign Reading Time Taken Comments Blood Pressure 118/74 08/13/2024 9:51 AM CDT Pulse 60 08/13/2024 9:51 AM CDT Temperature 36.4 C (97.6 F) 10/31/2023 1:55 PM CDT Respiratory Rate 16 03/05/2024 11:13 AM AIR TUCKER Oxygen Saturation 97% 07/02/2024 10:32 AM CDT Inhaled Oxygen Concentration - - Weight 117.5 kg (259 lb) 08/13/2024 9:51 AM CDT Height 188 cm (6' 2 ) 08/13/2024 9:51 AM CDT Body Mass Index 33.25 08/13/2024 9:51 AM CDT Plan of Treatment Not on file Medical Devices Implanted Type Area Metal Bonding Helper Device Identifier Shelf Expiration Date Model / Serial / Lot [employer] Vascade Mvp 6-12fr Venous Closure [id number] - [id number] - [id number] Implanted:Qty: 1 on 10/31/2023 by Todd Cochran III, MD at [facility] Collagen [employer] 03/24/2025 800-612C -10U / [id number] / [id number] [employer] Vascade Mvp 6-12fr Venous Closure [id number] - [id number] - [id number] Implanted:Qty: 1 on 10/31/2023 by Todd Cochran III, MD at [facility] Collagen [employer] 07/12/2025 800-612C -10U / [id number] / [id number] [employer] Vascade Mvp 6-12fr Venous Closure [id number] - [id number] - [id number] Implanted:Qty: 1 on 10/31/2023 by Todd Cochran III, MD at [facility] Collagen [employer] 07/12/2025 800-612C -10U / [id number] / [id number] [employer] [id number] Quadra Assura Mp [id number] Df-4 Is4 Is-1 Connector [id number] - [id number] - [id number] Implanted:Qty: 1 on 01/21/2019 by Joe Harp MD at [facility] ICD Left: Chest [employer] [id number] 12/22/2020 [id number] 0Q / [id number] / [employer] 7121q/65 Durata Sj4 7fr 65cm 2 Coil True Bipolar Cardioverter - [id number] - [id number] Implanted:Qty: 1 on 01/21/2019 by Joe Harp MD at [facility] Lead Left: Chest [employer] [id number] 07/22/2020 7121Q/65 / [id number] / [employer] 2088tc/52 Tendril Sts 6fr 52cm Is-1 Connector Active Fixation Bipolar Soft - [id number] - [id number] Implanted:Qty: 1 on 01/21/2019 by Joe Harp MD at [facility] Lead Left: Chest [employer] [id number] 12/22/2021 2088TC/5 2 / [id number] / [employer] 1456q/86 Quartet 4.7fr 86cm Quadripolar Is-4 Llll Connector 8 Curve Low - [id number] - [id number] Implanted:Qty: 1 on 01/21/2019 by Joe Harp MD at [facility] Lead Left: Chest [employer] [id number] 11/21/2021 1456Q/86 / [id number] / [employer] [id number] Vascade 6/7fr Bioabsorbable Vascular System Compression Collagen - S0 - [id number] Implanted:Qty: 1 on 07/02/2020 by Amari Burgess MD at [facility] Other - see comments [employer] 02/09/2022 [id number] -05U / 0 / [id number] Description:Right Femoral ve inous closure device [employer] 6250bdy22et Brien-Edwa rds Perimount Magna Ease 27mm Bioprosthesis - [id number] - [id number] Implanted:Qty: 1 on 07/06/2020 by Darvin Hernandez MD at [facility] Prosthetic Valve N/A: Aortic Valve [employer] 01/30/2023 [id number] 7MM / [id number] / [id number] Procedures Procedure Name Priority Date/Time Associated Diagnosis [...] ICD CHECK (IN OFFICE) Patient ID: Eulalio Sutton is a 79 y.o. male. This patient [...] 9 seconds. Episodes last 90 days/Comments: AF [place] 1.5 %, 32 episodes classified as AT/AF [...] Narrative 08/12/2024 11:29 AM CDT Refer to [facility] phone encounter. REJI Green Device Specialist us Todd Cochran III, MD [facility] PROCEDURES Final Result * DEVICE CHECK - REMOTE (07/31/2024 5:20 AM CDT) Anatomical Region Laterality Modality Other 07/31/2024 5:20 AM CDT Narrative 08/12/2024 11:23 AM CDT Refer to Epic phone encounter. REJI Green Device Specialist us Todd Cochran III, MD [facility] PROCEDURES Final Result * DEVICE CHECK - REMOTE (07/01/2024 10:49 AM CDT) Anatomical Region Laterality Modality Other Narrative 07/16/2024 10:41 PM CDT Table formatting from the original result was not included. BiV ICD CHECK (REMOTE) Patient ID: Eulalio Sutton is a 79 y.o. male. This patient received a [employer] BiV ICD. They had a routine remote [...] 8.9 seconds. Episodes last 90 days/Comments: AF [place] 1 %,longest duration 3 hours on 06/23. [...] Last 3 Months Insurance MEDICARE [facility] MEDICARE [facility] MEDICARE SUPPLEMENT MEDICARE FORMERLY [facility], [facility]–1983 TRADITIONAL MEDICARE MEDICARE [facility] MEDICARE SUPPLEMENT Advance Directives For more information, please contact: [phone] * Full Code (Latest Code Status on File) Date Activated Date Inactivated Comments 07/06/2020 1:57 PM 07/10/2020 3:07 PM * Full Code Date Activated Date Inactivated Comments 07/01/2019 9:07 AM 07/02/2019 4:46 AM * Full Code Date Activated Date Inactivated Comments 03/11/2019 8:57 AM 2019 4:48 AM Care Teams Coal Trammer Relationship Specialty Start Date End Date Artur Hernandez MD [address] [facility] [address] [place] [address] PCP - General 10/30/12 Giuliana Gómez MD [address] [place] [address] Consulting Physician Cardiology 07/08/20 Kenny Chavez MD [address] [facility] [address] [place] [address] Transplant 03/24/24
--- OUTSIDE RECORDS SUMMARY | 2024-08-14 15:41 | XMS_ITS | Encounter Summary ---
Author Organization [facility] Healthcare Address [address] [place] [address] Care Team Providers Care Control Inspector Name Role Phone Artur Hernandez MD Primary Care Provider [phone] Miscellaneous, Not In File Unavailable Unava ilable Giuliana Gómez MD Unavailable [phone] Kenny Chavez MD Unavailable Encounter Details Date Type Department Care Team (Late st Contact Info) Description 06/12/2020 Telephone [facility] - [facility] [address] [place] [address] Transcribed Order, Provider Social History Tobacco Use Types Packs/Day Years Used Date Smoking Tobacco: Never Smokeless Tobacco: Never Alcohol Use Standard Drinks/Week Comments Yes 0 (1 standard drink = 0.6 oz pur e alcohol) rare beer Sex and Gender Information Value Date Recorded Sex Assigned at Not on file Legal Sex Male 7:32 PM MANAGER AMBULATORY Gender Identity Not on file Sexual Orientation Not on file documented as of this encounter Plan of Treatment Not on file documented as of this encounter Visit Diagnoses Not on filedocumented in this encounter Care Teams Control Inspector Relationship Specialty Start Date End Date Artur Hernandez MD [address] [place] [address] PCP - General 10/30/12 Miscellaneous, Not In File 07/01/1903/04 Giuliana Gómez MD [address] [facility] [address] [place] [address] Consulting Physician Cardiology 07/08/20 Kenny Chavez MD [address] [facility] [address] [place] [address] Transplant 03/24/24 documented as of this encounter
[2024-08-14 20:02] LABS: Basophils Absolute Auto 0.1 K/mm3 (0.0-0.1); Basophils Percent Auto 0.9 % (0.2-1.2); Eosinophils Absolute Auto 0.1 K/mm3 (0-0.3); Eosinophils Percent Auto 2.1 % (0-4.4); Hematocrit 43.2 % (42.0-52.0); Hemoglobin 13.9 g/dL (14.0-18.0); Immature Granulocyte Absolute 0.03 K/mm3 (0.00-0.031); Immature Granulocyte Percent A 0.4 % (0-0.5); Lymphocytes Absolute Auto 1.64 K/mm3 (0.9-3.2); Lymphocytes Percent Auto 24.5 % (18.3-44.2); Mean Corpuscular HGB Conc 32.2 g/dl (32-36); Mean Corpuscular Hemoglobin 30.2 pg (26-34); Mean Corpuscular Volume 93.9 fl (80-100); Monocytes Absolute Auto 0.5 K/mm3 (0.1-0.6); Monocytes Percent Auto 7.3 % (2.6-8.5); Neutrophils Absolute Auto 4.3 K/mm3 (1.3-6.7); Neutrophils Percent Auto 64.8 % (45.5-73.1); Platelet Count Result 161 k/mm3 (150-375); Red Cell Distribution Width 13.7 % (11.5-14.5); White Blood Count 6.7 K/mm3 (4.5-10.0)
[2024-08-14 20:19] LABS: Influenza A QL RT-PCR Negative (Negative); Influenza B QL RT-PCR Negative (Negative); SARS-CoV-2 RNA PCR Negative (Negative)
== END 2024-08-14 13:51 | disposition home or self-care (01) ==
LOC: ANHGOSHLAB 13:51
PROVIDERS: PCP Internal Medicine; Visit Provider Internal Medicine
DX: R50.9 Fever, unspecified (principal); R05.9 Cough, unspecified
CPT/HCPCS: 36415; 85025; 87636

== ENCOUNTER 2024-10-07 08:32 | Outpatient (CLI) | payer MEDICARE, SELFPAY ==
--- NOTE | ~2024-10-07 | XR_ITS ---
EXAMINATION: XR chest 2V DATE: 10/07/2024 08:59 INDICATION: Persistent cough TECHNIQUE: frontal and lateral views of the chest were obtained. COMPARISON: Chest radiograph dated 08/14/2024 FINDINGS: The lungs are clear with no focal airspace opacities, pulmonary edema, pleural effusion or pneumothor ax. Heart size is normal. Median sternotomy wires and mediastinal surgical clips are seen, likely fro m prior coronary artery bypass grafting. There is also been prior aortic valve repair. Three lead pac emaker/AICD seen with leads projecting over the expected locations of the right atrial appendage, ape x of the right ventricle and overlying the left ventricle likely having traversed the coronary sinus. IMPRESSION: 1. No acute cardiopulmonary disease. Reviewed, dictated and finalized at location A.
== END 2024-10-07 08:33 | disposition home or self-care (01) ==
LOC: GOSHIMG 08:33
PROVIDERS: PCP Internal Medicine; Visit Provider Internal Medicine
DX: R05.9 Cough, unspecified (principal)
CPT/HCPCS: 71046